=== PATIENT | male | born 1965 | race Caucasian/White ===

== ENCOUNTER 2022-10-29 17:43 | Inpatient (IN) ==
[2022-10-29] MEDS ORDERED: LORazepam 2 MG/1 ML VIAL IV STA (18:36)
[2022-10-29] MEDS ORDERED: ONDANSETRON INJ 2 MG/ML 2 ML VIAL IV STA ×2 (18:36→21:46)
[2022-10-29] MEDS ORDERED: SODIUM CHLORIDE 0.9% 1000ML 1,000 ML IV ONE (18:38)
--- NOTE | 2022-10-29 18:42 | Emergency Department Note ---
Impression & Plan Vertigo, Sinusitis Admit to the [facility] ED Provider Note NAME: JAIME PRATHER AGE: 57 SEX: M ARRIVES VIA: Walk-In INFORMANT: Patient and his ED PROVIDER(S): Jennifer Scott DO CHIEF COMPLAINT: Vertigo and vomiting PLAN: Disposition: Admit to the [facility] Condition: Fair MEDICAL DECISION MAKING: This is a 57-year-old male patient presents to the emergency department with vomiting and vertigo that will not stop. Patient had been diagnosed with a sinus infection 2 days ago at [facility] where he was started on Augmentin and Antivert. He seemed to be feeling better yesterday but then last night, he began to vomit and had significant increasing weakness, nausea, vomiting and dizziness to the point that he was unable to keep anything down throughout the day today and tonight. Here in the emergency department the patient appears to have severe symptoms of vertigo. He received IV crystalloid therapy, IV Ativan, oral Antivert, and IV Zofran. He went for CT scan of the brain and sinuses which revealed pansinusitis as interpreted by stat rad. Patient had a mildly elevated white blood cell count 11.6. There was no evidence of anemia. Renal function was normal. Electrolytes were normal. Upon presentation, the patient initially got some relief of the dizziness with IV fluids, IV Zofran, and IV Ativan. However, the severe vertiginous symptoms seem to return. It seems the patient is failing outpatient antibiotic treatment for sinusitis so he was given a dose of IV Unasyn here in the emergency department. Triage Nursing notes reviewed and agree with them. Additional history obtained from the patient's is at the bedside Prior medical records reviewed Vital Signs: reviewed and remarkable for no significant abnormalities Differential diagnosis: Dehydration, sinusitis, sinus abscess, meningitis, posterior circulation stroke, vertigo ER treatment provided: Cardiac monitoring Twelve-lead EKG IV normal saline bolus IV Ativan IV Zofran IV Unasyn Diagnostics interpreted by me: ECG: Normal sinus rhythm at a rate of [address] segment elevation or signs of ischemia. There is no ectopy. Cardiac Monitoring: Normal sinus rhythm at a rate of 72 Laboratory studies: See below Imaging studies: As per stat rad CT scan of the brain: See report CT scan of the sinuses: See report HPI: 57/M arrives for evaluation of vertigo and vomiting. Patient was diagnosed 2 days ago with vertigo at [facility] along with sinusitis. He was started on both Antivert and Augmentin. He seemed to be feeling better yesterday but then last evening became significantly weak and started vomiting again. Patient is unable to keep anything down today. PAST MEDICAL HISTORY:Hypertension, hypercholesterolemia PAST SURGICAL HISTORY:Previous surgery on the septum of his nose FAMILY HISTORY:See Below SOCIAL HISTORY:Patient lives with his . He works as a aragon. HOME MEDICATIONS:See list ALLERGIES:See list VITALS:See Below PHYSICAL EXAMINATION: HEENT: Head - normocephalic and atraumatic. Pupils are equal, round, and reactive to light. Extraocular eye muscles are intact and sclera are anicteric. Patient has significant horizontal nystagmus but no significant vertical or rotary nystagmus. Ears - bilaterally patent canals with noninjected tympanic membranes and no evidence of hemotympanum. Nose - moist nasal mucosa without discharge. Mouth - moist buccal mucosa. Oropharynx is nonerythematous and there is no tonsillar exudate or edema noted. Neck: Supple; no cervical lymphadenopathy or nuchal rigidity Heart: Regular rate and rhythm. There is a normal S1 and S2 with no murmurs, clicks, or gallops appreciated. Lungs: Clear to auscultation bilaterally with no wheezes, rales, or rhonchi. Abdomen: Soft, completely nontender, nondistended, with good bowel sounds. T here are no palpable pulsatile masses or hepatosplenomegaly. There is no guarding, rigidity, or rebound noted. Extremities: No evidence of cyanosis, clubbing, or edema. There are easily palpable peripheral pulses. Neuro:The patient is awake and alert, oriented to day, time, and place. Muscle strength is 5/5 in all 4 extremities. The patient has equal straw hat brusher strength and equal pedal push and pull. There are no cerebellar signs. The patient does not like to open his eyes because this exacerbates his dizziness and sensation that the room is spinning. ED COURSE: Times/Reassessments: 1814 patient was evaluated in room B10. A complete history and physical was performed. An IV lock was initiated and labs are drawn as above. An order was placed for continuous cardiac monitoring. The patient was in a normal sinus rhythm at a rate of 72. A twelve-lead EKG was obtained as described above. Patient was treated with IV Zofran and IV Ativan. He was bolused with IV normal saline solution. Patient went for CT scan of his brain and sinuses. Upon returning from radiology, his symptoms of nausea returned and he was given a second dose of Zofran. He was also given an oral dose of Antivert since that had previously helped 2 days ago. Patient feels as if he would be unable to get up off of the bed at this time due to such significant vertiginous symptoms. I reviewed the CT report with the patient and his . The patient was given a dose of IV Unasyn. 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 Beliefs That Will Affect Care: None Current Living Situation: Spouse Other Information That Helps Us Care for You: No Feels Safe at Home: Yes Safety Concerns: Feels Safe At This Time Assistive Devices: None Allergies Allergies Allergy/AdvReac Type Severity Reaction Status Date / Time apple Allergy Severe APPLE Verified 10/29/22 19:21 SKINS--MOUTH & THROAT SWELL grass pollen Allergy Severe HIVES, Verified 10/29/22 19:21 CONGESTION, SNEEZING, ITCHY EYES pollen extracts Allergy Severe HIVES, Verified 10/29/22 19:21 CONGESTION, SNEEZING, ITCHY EYES Home Meds Home Medications Medication Instructions Recorded Confirmed amlodipine 5 mg tablet 5 mg PO HS 10/29/22 10/29/22 amoxicillin 875 mg-potassium 1 tab PO BID 10/29/22 10/29/22 clavulanate 125 mg tablet atorvastatin 10 mg tablet 10 mg PO QAM 10/29/22 10/29/22 meclizine 12.5 mg tablet 12.5 mg PO TID PRN Dizziness 10/29/22 10/29/22 Results & Data (ED) Vital Signs Vital Signs - 24 hr 10/29/22 17:49 10/29/22 18:22 Temperature 36.6 C Temperature Source Temporal Artery Scan Pulse Rate 67 69 Respiratory Rate 20 Respiratory Effort / Characteristics Non-Labored Respiratory Depth Normal Blood Pressure 168/107 H Blood Pressure Mean 127 Pulse Oximetry 93 Oxygen Delivery Method Room Air Sepsis Recent Fever Within 48 Hours No Sepsis New/Unexplained Change in Mental Status N/A Sepsis Action Taken by Nursing No Action Required Laboratory Data 10/30/22 05:59 10/30/22 05:59 Lab Results 10/29/22 10/29/22 10/29/22 Range/Units 18:16 18:16 18:16 WBC 11.63 H (4.8-10.8) K/ul RBC 4.64 L (4.70-6.10) M/uL Hgb 15.0 (14.0-18.0) g/dl Hct 43.4 (42.0-52.0) % MCV 93.5 (80.0-100.0) fL MCH 32.3 (25.0-34.0) pg MCHC 34.6 (32.0-36.0) g/dL RDW Std Deviation 44.2 (36.4-46.3) fL RDW Coeff of [place] 13.1 (11.5-14.5) % Plt Count 276 (130-400) K/uL MPV 10.8 (9.4-12.4) fL Immature Gran % (Auto) 0.5 % Neut % (Auto) 86.8 % Lymph % (Auto) 7.7 % [place] % (Auto) 4.4 % Eos % (Auto) 0.3 % Baso % (Auto) 0.3 % Neut # (Auto) 10.08 H (1.40-6.50) K/uL Lymph # (Auto) 0.90 L (1.2-3.4) K/uL [place] # (Auto) 0.51 (0.11-0.59) K/uL Eos # (Auto) 0.04 (0-0.50) K/uL Baso # (Auto) 0.04 (0-0.2) K/uL Immature Gran # (Auto) 0.06 (0.01-0.20) K/uL Sodium 138 (136-145) mmol/L Potassium 3.9 (3.5-5.1) mmol/L Chloride 105 (98-107) mmol/L Carbon Dioxide 25 (21-32) mmol/L Anion Gap 8 (3-11) BUN 14 (6-23) mg/dl Creatinine 0.96 (0.6-1.4) mg/dl Est Cr Clr Drug Dosing Not Reportable Est GFR ( Amer) 101.3 ml/min Est GFR (Non-Af Amer) 87.4 ml/min BUN/Creatinine Ratio 14.6 (10-20) Glucose 112 H (70-99(Fasting)) mg/dl Lactate (0.4-2.0) mmol/L Calcium 9.4 (8.6-10.3) mg/dl Total Bilirubin 0.6 (0.2-1.0) mg/dl AST 20 (13-39) U/L ALT 29 (7-52) U/L Alkaline Phosphatase 57 (34-104) U/L Troponin I High Sens 3.6 (0-20) pg/ml Total Protein 7.3 (6.0-8.3) gm/dl Albumin 4.4 (3.4-5.0) gm/dl Globulin 2.9 (2.5-4.0) gm/dl Albumin/Globulin Ratio 1.5 (0.9-2) Procalcitonin < 0.05 (0-0.5) ng/ml SARS-CoV-2, RNA, NAAT (NEGATIVE) 10/29/22 10/30/22 Range/Units 19:07 00:00 WBC (4.8-10.8) K/ul RBC (4.70-6.10) M/uL Hgb (14.0-18.0) g/dl Hct (42.0-52.0) % MCV (80.0-100.0) fL MCH (25.0-34.0) pg MCHC (32.0-36.0) g/dL RDW Std Deviation (36.4-46.3) fL RDW Coeff of [place] (11.5-14.5) % Plt Count (130-400) K/uL MPV (9.4-12.4) fL Immature Gran % (Auto) % Neut % (Auto) % Lymph % (Auto) % [place] % (Auto) % Eos % (Auto) % Baso % (Auto) % Neut # (Auto) (1.40-6.50) K/uL Lymph # (Auto) (1.2-3.4) K/uL [place] # (Auto) (0.11-0.59) K/uL Eos # (Auto) (0-0.50) K/uL Baso # (Auto) (0-0.2) K/uL Immature Gran # (Auto) (0.01-0.20) K/uL Sodium (136-145) mmol/L Potassium (3.5-5.1) mmol/L Chloride (98-107) mmol/L Carbon Dioxide (21-32) mmol/L Anion Gap (3-11) BUN (6-23) mg/dl Creatinine (0.6-1.4) mg/dl Est Cr Clr Drug Dosing Est GFR ( Amer) ml/min Est GFR (Non-Af Amer) ml/min BUN/Creatinine Ratio (10-20) Glucose (70-99(Fasting)) mg/dl Lactate 1.2 (0.4-2.0) mmol/L Calcium (8.6-10.3) mg/dl Total Bilirubin (0.2-1.0) mg/dl AST (13-39) U/L ALT (7-52) U/L Alkaline Phosphatase (34-104) U/L Troponin I High Sens (0-20) pg/ml Total Protein (6.0-8.3) gm/dl Albumin (3.4-5.0) gm/dl Globulin (2.5-4.0) gm/dl Albumin/Globulin Ratio (0.9-2) Procalcitonin (0-0.5) ng/ml SARS-CoV-2, RNA, NAAT NEGATIVE (NEGATIVE) Administered Medications Acetaminophen (Acetaminophen 325 Mg Tab) 650 mg PO Q4H PRN PRN Reason: pain/fever Stop: 11/29/22 01:40 Last Admin: 10/30/22 21:45 Dose: 650 mg Documented By: Admin: 10/30/22 16:13 Dose: 650 mg Documented By: MAGUI Amlodipine Besylate (Amlodipine Besylate 5 Mg Tab) 5 mg PO HS SHANNA Stop: 11/29/22 20:59 Last Admin: 10/30/22 21:35 Dose: 5 mg Documented By: PEYTON Atorvastatin Calcium (Atorvastatin 10 Mg Tab) 10 mg PO QAM SHANNA Stop: 11/29/22 08:59 Last Admin: 10/30/22 08:11 Dose: 10 mg Documented By: MAGUI Methylprednisolone 40 mg/ (Syringe) 0.64 mls @ 1.5 mls/min IV Q8H SHANNA Stop: 11/29/22 05:59 Last Admin: 10/31/22 00:17 Dose: 1.5 mls/min Documented By: Admin: 10/30/22 17:03 Dose: 1.5 mls/min Documented By: Admin: 10/30/22 08:11 Dose: 1.5 mls/min Documented By: MAGUI Ceftriaxone Sodium 2,000 mg/ (Dextrose) 70 mls @ 100 mls/hr IV Q24H [facility]; Protocol Stop: 11/09/22 14:44 Last Infusion: 10/30/22 16:31 Dose: 0 mls/hr Documented By: Admin: 10/30/22 15:46 Dose: 100 mls/hr Documented By: MAGUI Lorazepam (Lorazepam 2 Mg/1 Ml Vial) 1 mg IV Q8H PRN PRN Reason: Anxiety/Agitation/seizure Stop: 11/30/22 03:04 Last Admin: 10/31/22 03:17 Dose: 1 mg Documented By: PEYTON Meclizine HCl (Meclizine 12.5 Mg Tab) 12.5 mg PO TID PRN PRN Reason: Dizziness Stop: 11/29/22 01:40 Last Admin: 10/30/22 21:36 Dose: 12.5 mg Documented By: Admin: 10/30/22 08:11 Dose: 12.5 mg Documented By: MAGUI Ondansetron HCl (Ondansetron Inj 2 Mg/Ml 2 Ml Vial) 4 mg IV Q6H PRN PRN Reason: Nausea Stop: 11/29/22 01:40 Last Admin: 10/30/22 02:05 Dose: 4 mg Documented By: TAVO Discontinued Medications Sodium Chloride (Nss 1000ml) 1,000 mls @ 999 mls/hr IV .Q1H1M ONE Stop: 10/29/22 19:38 Last Infusion: 10/29/22 20:11 Dose: 0 mls/hr Documented By: Admin: 10/29/22 18:53 Dose: 999 mls/hr Documented By: TOSHIA Ampicillin Sodium/Sulbactam Sodium 3,000 mg/ Sodium Chloride 108 mls @ 200 mls/hr IV NOW STA; Protocol Stop: 10/29/22 23:59 Last Infusion: 10/30/22 01:00 Dose: 0 mls/hr Documented By: Admin: 10/30/22 00:27 Dose: 200 mls/hr Documented By: RUTHANN Ampicillin Sodium/Sulbactam Sodium 3,000 mg/ Sodium Chloride 108 mls @ 200 mls/hr IV Q6H SHANNA; Protocol Stop: 11/09/22 05:59 Last Infusion: 10/30/22 14:18 Dose: 0 mls/hr Documented By: Admin: 10/30/22 13:43 Dose: 200 mls/hr Documented By: Infusion: 10/30/22 07:20 Dose: 0 mls/hr Documented By: Admin: 10/30/22 05:22 Dose: 200 mls/hr Documented By: TAVO Methylprednisolone 125 mg/ (Syringe) 2 mls @ 1.5 mls/min IV 0200 ONE Stop: 10/30/22 02:01 Last Admin: 10/30/22 02:05 Dose: 1.5 mls/min Documented By: TAVO Lactated Ringer's (Lr) 1,000 mls @ 125 mls/hr IV .Q8H SHANNA Stop: 10/30/22 10:29 Last Infusion: 10/30/22 10:51 Dose: 0 mls/hr Documented By: Admin: 10/30/22 02:34 Dose: 125 mls/hr Documented By: TAVO Lorazepam (Lorazepam 2 Mg/1 Ml Vial) 1 mg IV NOW STA Stop: 10/29/22 18:37 Last Admin: 10/29/22 18:52 Dose: 1 mg Documented By: TOSHIA Lorazepam (Lorazepam 2 Mg/1 Ml Vial) 1 mg IV NOW STA Stop: 10/31/22 03:27 Last Admin: 10/31/22 03:53 Dose: Not Given Documented By: PEYTON Meclizine HCl (Meclizine Hcl 25 Mg Tab) 25 mg PO NOW STA Stop: 10/29/22 21:47 Last Admin: 10/29/22 22:23 Dose: 25 mg Documented By: RUTHANN Ondansetron HCl (Ondansetron Inj 2 Mg/Ml 2 Ml Vial) 4 mg IV NOW STA Stop: 10/29/22 18:37 Last Admin: 10/29/22 18:52 Dose: 4 mg Documented By: TOSHIA Ondansetron HCl (Ondansetron Inj 2 Mg/Ml 2 Ml Vial) 4 mg IV NOW STA Stop: 10/29/22 21:47 Last Admin: 10/29/22 22:00 Dose: 4 mg Documented By: RUTHANN Discharge Plan Visit Data Chief Complaint: Vertigo Stated Complaint: VERTIGO ED Provider: Jennifer Scott Discharge Problem: Vertigo, Sinusitis Patient Disposition: Admitted As Inpatient Discharge Instructions Interventions: ED Discharge Assessment Last Done: 10/30/22 01:29
[2022-10-29 19:06] LABS: Basophils # (auto) 0.04 K/uL (0-0.2); Basophils % (auto) 0.3 %; Eosinophils # (auto) 0.04 K/uL (0-0.50); Eosinophils % (auto) 0.3 %; Hematocrit (blood only) 43.4 % (42.0-52.0); Immature Granulocytes # (auto) 0.06 K/uL (0.01-0.20); Immature Granulocytes % (auto) 0.5 %; Lymphocytes % (auto) 7.7 %; Mean Corpuscular Hemoglobin 32.3 pg (25.0-34.0); Mean Corpuscular Hgb Conc 34.6 g/dL (32.0-36.0); Mean Corpuscular Volume 93.5 fL (80.0-100.0); Mean Platelet Volume 10.8 fL (9.4-12.4); Monocytes # (auto) 0.51 K/uL (0.11-0.59); Monocytes % (auto) 4.4 %; Neutrophils # (auto) 10.08 K/uL (1.40-6.50); Neutrophils % (auto) 86.8 %; Platelet Count 276 K/uL (130-400); RDW Coefficient of Variation 13.1 % (11.5-14.5); RDW Standard Deviation 44.2 fL (36.4-46.3); Red Blood Count 4.64 M/uL (4.70-6.10); White Blood Count 11.63 K/ul (4.8-10.8)
[2022-10-29 19:07] LABS: Alanine Aminotransferase 29 U/L (7-52); Albumin Globulin Ratio 1.5 (0.9-2); Albumin Level 4.4 gm/dl (3.4-5.0); Alkaline Phosphatase 57 U/L (34-104); Anion Gap 8 (3-11); Aspartate Aminotransferase 20 U/L (13-39); BUN Creatinine Ratio 14.6 (10-20); Bilirubin,Total 0.6 mg/dl (0.2-1.0); Blood Urea Nitrogen 14 mg/dl (6-23); Calcium 9.4 mg/dl (8.6-10.3); Carbon Dioxide 25 mmol/L (21-32); Chloride 105 mmol/L (98-107); Est GFR (African American) 101.3 ml/min; Est GFR (Non-African American) 87.4 ml/min; Globulin 2.9 gm/dl (2.5-4.0); Glucose 112 mg/dl (70-99(Fasting)); Potassium 3.9 mmol/L (3.5-5.1); Sodium 138 mmol/L (136-145); Total Protein 7.3 gm/dl (6.0-8.3)
[2022-10-29 19:13] LABS: Troponin I High Sensitivity 3.6 pg/ml (0-20)
[2022-10-29] MEDS ORDERED: MECLIZINE HCL 25 MG TAB PO STA (21:46)
--- NOTE | 2022-10-29 22:11 | CT Scan Report ---
Exam(s): CT HEAD Without Contrast EXAM: CT Head Without Intravenous Contrast CLINICAL HISTORY: Reason for exam: SEVERE VERTIGO. TECHNIQUE: Axial computed tomography images of the head/brain without intravenous contrast. CTDI is 36.79 mGy and DLP is 624.41 mGy-cm. Automated exposure control was utilized for the study. A dose lowering technique was utilized adhering to the principles of ALARA. COMPARISON: None. FINDINGS: Brain: Mild generalized brain atrophy. No hemorrhage. No significant white matter disease. Ventricles: Unremarkable. No ventriculomegaly. Bones/joints: Unremarkable. No acute fracture. Soft tissues: Unremarkable. Sinuses: Mild mucosal thickening involving the bilateral ethmoidal sinuses, likely sequela of prior sinusitis. Remainder of the paranasal sinuses are clear. No air-fluid levels seen. Mastoid air cells: Unremarkable as visualized. No mastoid effusion. IMPRESSION: Involutional changes otherwise normal CT brain. Electronically signed by: Chen Beyer MD 10/29/22 22:10 PM
--- NOTE | 2022-10-29 22:15 | CT Scan Report ---
Exam(s): CT SINUSES EXAM: CT Maxillofacial Sinuses Without Intravenous Contrast CLINICAL HISTORY: Reason for exam: PERSISTENT SINUSITIS. TECHNIQUE: Computed tomography images of the maxillofacial sinuses without intravenous contrast. CTDI is 31.02 mGy and DLP is 608.89 mGy-cm. Automated exposure control was utilized for the study. A dose lowering technique was utilized adhering to the principles of ALARA. COMPARISON: None. FINDINGS: Bilateral paranasal sinuses: Scattered areas of mucosal thickening with mucous retention cyst within the bilateral maxillary sinuses, largest seen on the right measuring approximately 1.8 cm. Mild nonspecific mucosal thickening of bilateral ethmoids and frontal sinuses, a combination of findings consistent with sequela of prior sinusitis. No air-fluid levels seen. Minimal mucosal thickening through the sphenoid. Nasal cavity/septum: Mild deviation of the nasal septum with convexity to the left. Otherwise no acute findings. Mastoid air cells: Bilateral mastoids are clear. Bones/joints: The left ostiomeatal complex is patent. There is mild mucosal thickening of the right maxillary sinus near the right ostiomeatal complex with no distinct mass or cystic change at this level. No acute fracture. Soft tissues: Unremarkable. IMPRESSION: Mucosal thickening involving the bilateral maxillary, ethmoids, bilateral frontal sinuses and sphenoid sinus with mucous retention cyst within the bilateral maxillary sinus, findings most compatible with sequela of chronic sinusitis. Clinical correlation recommended. Electronically signed by: Chen Beyer MD 10/29/22 22:14 PM
[2022-10-29] MEDS ORDERED: AMPICILLIN/SULBACTAM SOD 3,000 MG in 0.9 % SODIUM CHLORIDE 100 ML IV STA (23:27)
--- NOTE | 2022-10-29 23:51 | History & Physical Report ---
Date of Service October 29, 2022 Assessment & Plan (1) Acute pansinusitis: (2) Hypertension: (3) Hyperlipidemia: (4) Failure of outpatient treatment: (5) Confusion and disorientation: (6) Intractable nausea and vomiting: Plan Acute pansinusitis/failure of outpatient treatment/confusion and disorientation/intractable vertigo- Started on Unasyn 3 g IV in the ED, and continue Unasyn 3 g IV every 6 hours Add methylprednisolone 125 mg IV now, and then 40 mg IV every 8 hours Patient showing signs of systemic involvement with intractable nausea vomiting, no oral intake for 2 days, dehydration, and disorientation and confusion He failed Augmentin twice daily for 3 days, which will be stopped Continue symptomatic treatment with meclizine 12.5 mg p.o. 3 times daily as needed dizziness Hypertension- Continue amlodipine with hold parameters Hyperlipidemia- Continue atorvastatin History of Present Illness Chief Complaint: The patient presents with his to the emergency department with complaint of vomiting, vertigo, disorientation and confusion despite being on Augmentin twice daily for 3 days. Primary Care Provider: KATIE FARRELL The patient is a 57-year-old male with a past medical history including hypertension and hyperlipidemia. He presents to the emergency department with 3 days of progressively worsening symptoms as noted above. He was started on Augmentin twice daily 3 days ago, and symptoms have continued to intensify since that time. He reports not having been able to hold anything down for 2 days. Allergies Allergy/AdvReac Type Severity Reaction Status Date / Time apple Allergy Severe APPLE Verified 10/29/22 19:21 SKINS--MOUTH & THROAT SWELL grass pollen Allergy Severe HIVES, Verified 10/29/22 19:21 CONGESTION, SNEEZING, ITCHY EYES pollen extracts Allergy Severe HIVES, Verified 10/29/22 19:21 CONGESTION, SNEEZING, ITCHY EYES Home Medications Medication Instructions Recorded Confirmed Type amlodipine 5 mg tablet 5 mg PO HS 10/29/22 10/29/22 History amoxicillin 875 mg-potassium 1 tab PO BID 10/29/22 10/29/22 History clavulanate 125 mg tablet atorvastatin 10 mg tablet 10 mg PO QAM 10/29/22 10/29/22 History meclizine 12.5 mg tablet 12.5 mg PO TID PRN Dizziness 10/29/22 10/29/22 History Past Med/Surg History Medical History (Updated 10/30/22 @ 01:37 by Valeriy Love MD) Hyperlipidemia Hypertension Social History Smoking Status: Never smoker Feels Safe at Home: Yes Review of Systems Review of Systems: The patient denies chest pain, palpitations, shortness of breath, dyspnea on exertion, lower extremity swelling, sore throat, fevers, chills, sweats, diarrhea , constipation, abdominal pain, pelvic pain, blood in urine or stool, dysuria, urinary frequency or urgency, memory loss, loss of consciousness, rash, abnormal bruising or bleeding, focal or generalized weakness, numbness or tingling in arms or legs, back or neck pain, or night sweats. The review of systems is otherwise negative other than for that already noted above, and at least 10 systems have been reviewed. Physical Exam Physical Exam: The patient is awake, alert and oriented 3, well developed and well nourished, normocephalic and atraumatic, lying in bed and in no acute distress. HEENT--PERRL, EOMI, mucous membranes and oropharynx dry. Neck--supple. No JVD. No bruits. Thyroid normal, trachea midline, no adenopathy. Heart--normal S1 and S2. No murmurs, rubs or gallops. Lungs--clear bilaterally, no respiratory distress, no accessory muscle use. Abdomen--normal bowel sounds and soft. Nontender. Nondistended, no hernias or masses, no organomegaly. Extremities--no cyanosis or clubbing. No edema. There are good distal pulses b/l. Dermatologic--normal skin turgor, normal color, no abnormal lymph nodes, no rash. Neurologic--cranial nerves II through XII grossly intact. Rheumatologic--normal range of motion. Psychiatric--normal affect. Results & Data Results & Data Vital Signs (Past 12 Hours) Vital Signs Temp Pulse Resp BP Pulse Ox O2 Del Method 10/29/22 22:20 73 10/29/22 22:30 71 20 93 10/29/22 22:00 78 24 164/96 H 94 Room Air 10/29/22 21:00 68 16 142/88 H 95 10/29/22 20:14 70 24 146/92 H 96 10/29/22 19:00 73 24 154/97 H 94 10/29/22 18:22 69 10/29/22 17:49 36.6 C 67 20 168/107 H 93 Room Air Laboratory Results Laboratory Results WBC 11.63 K/ul (4.8-10.8) H 10/29/22 18:16 RBC 4.64 M/uL (4.70-6.10) L 10/29/22 18:16 Hgb 15.0 g/dl (14.0-18.0) 10/29/22 18:16 Hct 43.4 % (42.0-52.0) 10/29/22 18:16 MCV 93.5 fL (80.0-100.0) 10/29/22 18:16 MCH 32.3 pg (25.0-34.0) 10/29/22 18:16 MCHC 34.6 g/dL (32.0-36.0) 10/29/22 18:16 RDW Std Deviation 44.2 fL (36.4-46.3) 10/29/22 18:16 RDW Coeff of [place] 13.1 % (11.5-14.5) 10/29/22 18:16 Plt Count 276 K/uL (130-400) 10/29/22 18:16 MPV 10.8 fL (9.4-12.4) 10/29/22 18:16 Immature Gran % (Auto) 0.5 % 10/29/22 18:16 Neut % (Auto) 86.8 % 10/29/22 18:16 Lymph % (Auto) 7.7 % 10/29/22 18:16 [place] % (Auto) 4.4 % 10/29/22 18:16 Eos % (Auto) 0.3 % 10/29/22 18:16 Baso % (Auto) 0.3 % 10/29/22 18:16 Neut # (Auto) 10.08 K/uL (1.40-6.50) H 10/29/22 18:16 Lymph # (Auto) 0.90 K/uL (1.2-3.4) L 10/29/22 18:16 [place] # (Auto) 0.51 K/uL (0.11-0.59) 10/29/22 18:16 Eos # (Auto) 0.04 K/uL (0-0.50) 10/29/22 18:16 Baso # (Auto) 0.04 K/uL (0-0.2) 10/29/22 18:16 Immature Gran # (Auto) 0.06 K/uL (0.01-0.20) 10/29/22 18:16 Sodium 138 mmol/L (136-145) 10/29/22 18:16 Potassium 3.9 mmol/L (3.5-5.1) 10/29/22 18:16 Chloride 105 mmol/L (98-107) 10/29/22 18:16 Carbon Dioxide 25 mmol/L (21-32) 10/29/22 18:16 Anion Gap 8 (3-11) 10/29/22 18:16 BUN 14 mg/dl (6-23) 10/29/22 18:16 Creatinine 0.96 mg/dl (0.6-1.4) 10/29/22 18:16 Est Cr Clr Drug Dosing Not Reportable 10/29/22 18:16 Est GFR ( Amer) 101.3 ml/min 10/29/22 18:16 Est GFR (Non-Af Amer) 87.4 ml/min 10/29/22 18:16 BUN/Creatinine Ratio 14.6 (10-20) 10/29/22 18:16 Glucose 112 mg/dl (70-99(Fasting)) H 10/29/22 18:16 Lactate 1.2 mmol/L (0.4-2.0) 10/29/22 19:07 Calcium 9.4 mg/dl (8.6-10.3) 10/29/22 18:16 Total Bilirubin 0.6 mg/dl (0.2-1.0) 10/29/22 18:16 AST 20 U/L (13-39) 10/29/22 18:16 ALT 29 U/L (7-52) 10/29/22 18:16 Alkaline Phosphatase 57 U/L (34-104) 10/29/22 18:16 Troponin I High Sens 3.6 pg/ml (0-20) 10/29/22 18:16 Total Protein 7.3 gm/dl (6.0-8.3) 10/29/22 18:16 Albumin 4.4 gm/dl (3.4-5.0) 10/29/22 18:16 Globulin 2.9 gm/dl (2.5-4.0) 10/29/22 18:16 Albumin/Globulin Ratio 1.5 (0.9-2) 10/29/22 18:16 Procalcitonin < 0.05 ng/ml (0-0.5) 10/29/22 18:16 SARS-CoV-2, RNA, NAAT NEGATIVE (NEGATIVE) 10/30/22 00:[address] 10/29/22 18:36 Exam(s): CT HEAD Without Contrast EXAM: CT Head Without Intravenous Contrast CLINICAL HISTORY: Reason for exam: SEVERE VERTIGO. TECHNIQUE: Axial computed tomography images of the head/brain without intravenous contrast. CTDI is 36.79 mGy and DLP is 624.41 mGy-cm. Automated exposure control was utilized for the study. A dose lowering technique was utilized adhering to the principles of ALARA. COMPARISON: None. FINDINGS: Brain: Mild generalized brain atrophy. No hemorrhage. No significant white matter disease. Ventricles: Unremarkable. No ventriculomegaly. Bones/joints: Unremarkable. No acute fracture. Soft tissues: Unremarkable. Sinuses: Mild mucosal thickening involving the bilateral ethmoidal sinuses, likely sequela of prior sinusitis. Remainder of the paranasal sinuses are clear. No air-fluid levels seen. Mastoid air cells: Unremarkable as visualized. No mastoid effusion. IMPRESSION: Involutional changes otherwise normal CT brain. Electronically signed by: Chen Beyer MD 10/29/22 22:[address] 10/29/22 18:36 Exam(s): CT SINUSES EXAM: CT Maxillofacial Sinuses Without Intravenous Contrast CLINICAL HISTORY: Reason for exam: PERSISTENT SINUSITIS. TECHNIQUE: Computed tomography images of the maxillofacial sinuses without intravenous contrast. CTDI is 31.02 mGy and DLP is 608.89 mGy-cm. Automated exposure control was utilized for the study. A dose lowering technique was utilized adhering to the principles of ALARA. COMPARISON: None. FINDINGS: Bilateral paranasal sinuses: Scattered areas of mucosal thickening with mucous retention cyst within the bilateral maxillary sinuses, largest seen on the right measuring approximately 1.8 cm. Mild nonspecific mucosal thickening of bilateral ethmoids and frontal sinuses, a combination of findings consistent with sequela of prior sinusitis. No air-fluid levels seen. Minimal mucosal thickening through the sphenoid. Nasal cavity/septum: Mild deviation of the nasal septum with convexity to the left. Otherwise no acute findings. Mastoid air cells: Bilateral mastoids are clear. Bones/joints: The left ostiomeatal complex is patent. There is mild mucosal thickening of the right maxillary sinus near the right ostiomeatal complex with no distinct mass or cystic change at this level. No acute fracture. Soft tissues: Unremarkable. IMPRESSION: Mucosal thickening involving the bilateral maxillary, ethmoids, bilateral frontal sinuses and sphenoid sinus with mucous retention cyst within the bilateral maxillary sinus, findings most compatible with sequela of chronic sinusitis. Clinical correlation recommended. Electronically signed by: Chen Beyer MD 10/29/22 22:14 PM Code Status & VTE Plan Code Status Full code VTE Prophylaxis Plan VTE Prophylaxis will be ordered: Yes PG Care Time/CCT Total # of Minutes Spent Total Time Spent with Patient: Total time spent is greater than 50% in coordination of care (as documented) at patient's floor/unit and/or counseling patient: Coding Level of Care Code 21858 INT INP/OBS CARE 2/55MIN Diagnoses Acute pansinusitis J01.40 Hypertension I10 Hyperlipidemia E78.5 Failure of outpatient treatment Z78.9 Confusion and disorientation R41.0 Intractable nausea and vomiting R11.2
[2022-10-30] MEDS ORDERED: methylPREDNISolone 125 MG/2 ML VIAL IV STA (01:41)
[2022-10-30] MEDS ORDERED: methylPREDNISolone 125 MG in SYRINGE 0 ML IV ONE (02:00)
[2022-10-30] MEDS: ONDANSETRON INJ 2 MG/ML 2 ML VIAL IV PRN (02:05)
[2022-10-30] MEDS ORDERED: LACTATED RINGER'S 1,000 ML IV SCH (02:30)
[2022-10-30] MEDS: AMPICILLIN/SULBACTAM SOD 3,000 MG in 0.9 % SODIUM CHLORIDE 100 ML IV SCH ×2 (05:22→13:43)
[2022-10-30 06:21] LABS: Hematocrit (blood only) 43.2 % (42.0-52.0); Hemoglobin 14.8 g/dl (14.0-18.0); Mean Corpuscular Hemoglobin 32.3 pg (25.0-34.0); Mean Corpuscular Hgb Conc 34.3 g/dL (32.0-36.0); Mean Corpuscular Volume 94.3 fL (80.0-100.0); Mean Platelet Volume 10.7 fL (9.4-12.4); Platelet Count 278 K/uL (130-400); RDW Coefficient of Variation 13.2 % (11.5-14.5); RDW Standard Deviation 45.1 fL (36.4-46.3); Red Blood Count 4.58 M/uL (4.70-6.10); White Blood Count 10.44 K/ul (4.8-10.8)
[2022-10-30 06:39] LABS: Basophils # (auto) 0.02 K/uL (0-0.2); Basophils % (auto) 0.2 %; Eosinophils # (auto) 0.01 K/uL (0-0.50); Eosinophils % (auto) 0.1 %; Immature Granulocytes # (auto) 0.04 K/uL (0.01-0.20); Immature Granulocytes % (auto) 0.4 %; Lymphocytes # (auto) 0.75 K/uL (1.2-3.4); Lymphocytes % (auto) 7.2 %; Monocytes # (auto) 0.06 K/uL (0.11-0.59); Monocytes % (auto) 0.6 %; Neutrophils # (auto) 9.56 K/uL (1.40-6.50); Neutrophils % (auto) 91.5 %
[2022-10-30 06:45] LABS: BUN Creatinine Ratio 13.9 (10-20); Calcium 9.1 mg/dl (8.6-10.3); Creatinine Clr Calc Pharmacy 91.2 ml/min; Est GFR (African American) 95.3 ml/min; Est GFR (Non-African American) 82.2 ml/min; Potassium 4.2 mmol/L (3.5-5.1)
[2022-10-30 07:04] LABS: Albumin Level 4.1 gm/dl (3.4-5.0); Phosphorus 1.2 mg/dl (2.5-4.9)
[2022-10-30] MEDS: MECLIZINE 12.5 MG TAB PO PRN ×2 (08:11→21:36)
[2022-10-30] MEDS: ATORVASTATIN 10 MG TAB PO SCH (08:11)
[2022-10-30] MEDS: methylPREDNISolone 40 MG in SYRINGE 0 ML IV SCH ×2 (08:11→17:03)
--- NOTE | 2022-10-30 10:37 | Electrocardiogram Report ---
Test Reason : Blood Pressure : / mmHG Vent. Rate : 070 BPM Atrial Rate : 070 BPM P-R Int : 164 ms QRS Dur : 080 ms QT Int : 390 ms P-R-T Axes : 000 -14 099 degrees QTc Int : 421 ms Normal sinus rhythm Minimal voltage criteria for LVH, may be normal variant ( Sokolow-Carlson ) Cannot rule out Inferior infarct , age undetermined Abnormal ECG No previous ECGs available Confirmed by Jack Pelaez ([id number]) on 10/30/2022 10:37:41 AM Referred By: REFERRED SELF Confirmed By:Jack Pelaez
--- NOTE | 2022-10-30 12:09 | Hospitalist Progress Note ---
Date of Service October 30, 2022 Assessment & Plan (1) Acute pansinusitis: Plan: IV antibiotic then PO Augmentin (2) Hypertension: Plan: Add Cozaar low dose if BP trends up. For now BP okay. (3) Hyperlipidemia: Plan: Good HDL (4) Failure of outpatient treatment: Plan: Therefore IV antibiotic (5) Confusion and disorientation: Plan: This symptom is improving. (6) Intractable nausea and vomiting: Plan: Improved. Plan Acute pansinusitis/failure of outpatient treatment/confusion and disorientation/intractable vertigo- Started on Unasyn 3 g IV in the ED, and continue Unasyn 3 g IV every 6 hours Add methylprednisolone 125 mg IV now, and then 40 mg IV every 8 hours Patient showing signs of systemic involvement with intractable nausea vomiting, no oral intake for 2 days, dehydration, and disorientation and confusion He failed Augmentin twice daily for 3 days, which will be stopped Continue symptomatic treatment with meclizine 12.5 mg p.o. 3 times daily as needed dizziness Hypertension- Continue amlodipine with hold parameters Hyperlipidemia- Continue atorvastatin Admission and Anticipated Discharge Date Admission Date: October 30, 2022 Subjective Patient went to [facility] last weak due to his symptoms and was hydrated and released. Patient blames the moldy hay for allergies and nasal congestion. I reviewed patient [facility] with patients approval and request to do so. Review of Systems Review of Systems: The patient denies chest pain, palpitations, shortness of breath, dyspnea on exertion, lower extremity swelling, sore throat, fevers, chills, sweats, diarrhea , constipation, abdominal pain, pelvic pain, blood in urine or stool, dysuria, urinary frequency or urgency, memory loss, loss of consciousness, rash, abnormal bruising or bleeding, focal or generalized weakness, numbness or tingling in arms or legs, back or neck pain, or night sweats. The review of systems is otherwise negative other than for that already noted above, and at least 10 systems have been reviewed. Neurologic: Patient has no focal deficit but is generally weak as a kitten. Physical Exam Physical Exam: The patient is awake, alert and oriented 3, well developed and well nourished, normocephalic and atraumatic, lying in bed and in no acute distress. HEENT--PERRL, EOMI, mucous membranes and oropharynx dry. Neck--supple. No JVD. No bruits. Thyroid normal, trachea midline, no adenopathy. Heart--normal S1 and S2. No murmurs, rubs or gallops. Lungs--clear bilaterally, no respiratory distress, no accessory muscle use. Abdomen--normal bowel sounds and soft. Nontender. Nondistended, no hernias or masses, no organomegaly. Extremities--no cyanosis or clubbing. No edema. There are good distal pulses b/l. Dermatologic--normal skin turgor, normal color, no abnormal lymph nodes, no rash. Neurologic--cranial nerves II through XII grossly intact. Rheumatologic--normal range of motion. Psychiatric--normal affect. Results & Data Results & Data Vital Signs (Past 12 Hours) Vital Signs Temp Pulse Pulse Resp BP BP Pulse Ox 10/30/22 07:40 36.7 C 69 16 135/84 95 10/30/22 01:50 10/30/22 01:47 36.7 C 73 18 161/99 H 94 10/30/22 01:00 68 16 145/95 H 93 10/30/22 00:00 65 14 149/97 H 96 O2 Del Method 10/30/22 07:40 Room Air 10/30/22 01:50 Room Air 10/30/22 01:47 Room Air 10/30/22 01:00 10/30/22 00:00 PG Care Time/CCT Total # of Minutes Spent Total Time Spent with Patient: Total time spent is greater than 50% in coordination of care (as documented) at patient's floor/unit and/or counseling patient: Coding Level of Care Code 11976 SUB INP/OBS CARE 3/50MIN Diagnoses Acute pansinusitis J01.40 Hypertension I10 Hyperlipidemia E78.5 Failure of outpatient treatment Z78.9 Confusion and disorientation R41.0 Intractable nausea and vomiting R11.2
--- NOTE | 2022-10-30 13:27 | Neurology Consultation ---
Date of Consultation October 30, 2022 Assessment & Plan (1) Vertigo: Reviewing his testing thus far, this is NOT pansinusitis. Very mild chronic sinus changes would not produce this presentation, he has no fluid levels and fully open mastoid air cells. He was previously febrile, has a headache and confusion, all concerning for meningitis, though likely partially treated at this point given the abx he received at [facility]. I do not suspect stroke, vertigo of this severity is typically vestibular. Ves tibulitis/labyrinthitis is possible as a secondary effect of the meningitis, because alone they would not produce confusion or generalized weakness. Recommend broadening abx coverage to an agent with CREDIT CARD CLERK penetration like ceftriaxone/vanc for now. He needs an LP and agree with proceeding to an MRI of the brain but would add contrasted studies as well. -- LP - Cell count, protein, glucose, gram stain, HSV, VZV, listeria -- Serum biofire, respiratory virus panel -- Lyme titer -- Defer need for ID consult to medicine -- Broaden abx coverage to ceftriaxone/vanc -- MRI brain with and without contrast -- We will follow Telehealth Consultation Telehealth Information Telehealth Information: I performed this visit using a real-time telehealth connection between my location and the patients location ([facility]). After connecting through interactive tele-video, patient was identified by name and date of and/or wristband check.Patient (or authorized healthcare associate financial representative) was informed that this was a telemedicine visit and it was being conducted confidentially over secure lines. My office door was closed and no one else was present in the room with me.Patient (or authorized healthcare associate financial representative) provided consent to proceed with the visit, expressed an understanding of privacy and security of the telemedicine visit, and gave permission to have a hospital associate financial representative in the room in order to assist with the visit and to conduct portions of the visit, as needed. I informed the patient (or authorized healthcare associate financial representative) that I reviewed their record and presented the opportunity for them to ask any questions regarding the visit today. The patient agreed to participate. History of Present Illness Reason for Consultation: Altered mental status, weakness, vertigo Requesting Physician: Dr. Abraham Attending Physician: Chan Abraham, DO History of Present Illness Cordell Westbrook is a 57 yo M presenting with generalized weakness in the setting of intractable vertigo and fevers. He was initially admitted to [facility] and diagnosed with sinusitis though imaging is not available. He was given abx and ultimately discharged. However, at home he was unable to keep down food or ambulate secondary to weakness and was brought to [facility] by his . The patient feels extremely weak, he has a frontal headache he initially attributed to the sinuses. 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 No recent chemical exposure. He is unable to move without severe waves of vertigo that cause him to vomit. He has never felt like this in the past. No hearing changes, no double vision, trouble swallowing or speaking. Allergies Allergy/AdvReac Type Severity Reaction Status Date / Time apple Allergy Severe APPLE Verified 10/29/22 19:21 SKINS--MOUTH & THROAT SWELL grass pollen Allergy Severe HIVES, Verified 10/29/22 19:21 CONGESTION, SNEEZING, ITCHY EYES pollen extracts Allergy Severe HIVES, Verified 10/29/22 19:21 CONGESTION, SNEEZING, ITCHY EYES Home Medications Medication Instructions Recorded Confirmed Type amlodipine 5 mg tablet 5 mg PO HS 10/29/22 10/29/22 History amoxicillin 875 mg-potassium 1 tab PO BID 10/29/22 10/29/22 History clavulanate 125 mg tablet atorvastatin 10 mg tablet 10 mg PO QAM 10/29/22 10/29/22 History meclizine 12.5 mg tablet 12.5 mg PO TID PRN Dizziness 10/29/22 10/29/22 History Patient History Medical History (Updated 10/30/22 @ 13:31 by Nikolas Hooks MD) Hyperlipidemia Hypertension Social History Smoking Status: Former smoker Smoking End Date: 12 years ago; Hx Alcohol Use: Yes Alcohol type: hard liquor Hx Substance Use: No Preferred Language: Mongolian Communication Ability: Effective Diagnostic Radiologist Required: No Beliefs That Will Affect Care: None Current Living Situation: Spouse Other Information That Helps Us Care for You: No Feels Safe at Home: Yes Safety Concerns: Feels Safe At This Time Assistive Devices: None Review of Systems +vertigo, headache, generalized weakness Physical Exam Neuro exam limited by patients ability to move due to vertigo. He is awake and alert, speech is slow but fluent, history is difficult to follow at times but no clear language abnormality. Oriented to person, place and time. Ocular versions full, face symmetric, tongue midline. Antigravity in the upper extremities with very little movement otherwise due to discomfort. No nucal rigidity but any neck motions trigger vertigo. Results & Data Vital Signs (Past 12 Hours) Vital Signs Temp Pulse Resp BP Pulse Ox O2 Del Method 10/30/22 12:41 36.5 C 81 12 154/93 H 92 Room Air 10/30/22 07:40 36.7 C 69 16 135/84 95 Room Air 10/30/22 01:50 Room Air 10/30/22 01:47 36.7 C 73 18 161/99 H 94 Room Air Laboratory Results Abnormal lab results 10/29/22 10/29/22 10/30/22 Range/Units 18:16 18:16 05:59 WBC 11.63 H (4.8-10.8) K/ul RBC 4.64 L 4.58 L (4.70-6.10) M/uL Neut # (Auto) 10.08 H 9.56 H (1.40-6.50) K/uL Lymph # (Auto) 0.90 L 0.75 L (1.2-3.4) K/uL [place] # (Auto) 0.06 L (0.11-0.59) K/uL Glucose 112 H (70-99(Fasting)) mg/dl Phosphorus (2.5-4.9) mg/dl 10/30/22 Range/Units 05:59 WBC (4.8-10.8) K/ul RBC (4.70-6.10) M/uL Neut # (Auto) (1.40-6.50) K/uL Lymph # (Auto) (1.2-3.4) K/uL [place] # (Auto) (0.11-0.59) K/uL Glucose 126 H (70-99(Fasting)) mg/dl Phosphorus 1.2 L* (2.5-4.9) mg/dl Diagnostic Findings CT sinuses - NEGATIVE for pansinusitis
[2022-10-30 15:21] LABS: Influenza A virus by PCR Negative (Neg); Influenza B virus by PCR Negative (Neg); RSV by PCR Negative (Neg); SARS CoV2 RNA(COVID-19) Ceph NEGATIVE (Negative)
[2022-10-30] MEDS: cefTRIAXone SODIUM 2,000 MG in DEXTROSE 5% 50 ML IV SCH (15:46)
[2022-10-30] MEDS: ACETAMINOPHEN 325 MG TAB PO PRN ×2 (16:13→21:45)
[2022-10-30] MEDS: amLODIPine BESYLATE 5 MG TAB PO SCH (21:35)
[2022-10-31] MEDS: methylPREDNISolone 40 MG in SYRINGE 0 ML IV SCH ×4 (00:17→23:58)
[2022-10-31] MEDS: LORazepam 2 MG/1 ML VIAL IV PRN (03:17)
[2022-10-31] MEDS ORDERED: LORazepam 2 MG/1 ML VIAL IV STA (03:26)
[2022-10-31 08:28] LABS: Hematocrit (blood only) 41.2 % (42.0-52.0); Hemoglobin 14.6 g/dl (14.0-18.0); Mean Corpuscular Hemoglobin 32.6 pg (25.0-34.0); Mean Corpuscular Hgb Conc 35.4 g/dL (32.0-36.0); Mean Platelet Volume 10.8 fL (9.4-12.4); Platelet Count 285 K/uL (130-400); RDW Coefficient of Variation 12.9 % (11.5-14.5); RDW Standard Deviation 43.8 fL (36.4-46.3); Red Blood Count 4.48 M/uL (4.70-6.10)
[2022-10-31] MEDS: ATORVASTATIN 10 MG TAB PO SCH (08:31)
[2022-10-31] MEDS: MECLIZINE 12.5 MG TAB PO PRN ×2 (08:31→14:35)
[2022-10-31 08:46] LABS: BUN Creatinine Ratio 21.4 (10-20); Est GFR (African American) 98.8 ml/min; Est GFR (Non-African American) 85.2 ml/min; Phosphorus 3.2 mg/dl (2.5-4.9); Potassium 4.1 mmol/L (3.5-5.1)
[2022-10-31 08:51] LABS: Basophils # (auto) 0.02 K/uL (0-0.2); Basophils % (auto) 0.1 %; Echinocytes 1+; Immature Granulocytes # (auto) 0.15 K/uL (0.01-0.20); Immature Granulocytes % (auto) 0.8 %; Lymphocytes # (auto) 0.91 K/uL (1.2-3.4); Lymphocytes % (auto) 5.1 %; Monocytes # (auto) 0.68 K/uL (0.11-0.59); Monocytes % (auto) 3.8 %; Neutrophils # (auto) 16.24 K/uL (1.40-6.50); Neutrophils % (auto) 90.2 %
[2022-10-31] MEDS ORDERED: GADOBUTROL 65ML VIAL IV ONE (13:19)
[2022-10-31] MEDS: cefTRIAXone SODIUM 2,000 MG in DEXTROSE 5% 50 ML IV SCH (14:35)
[2022-10-31] MEDS: ACETAMINOPHEN 325 MG TAB PO PRN ×2 (16:16→21:42)
--- NOTE | 2022-10-31 16:33 | Magnetic Resonance Report ---
Brain and bilateral artery canal MRI WITH AND WITHOUT CONTRAST HISTORY: Vertigo. meningitis evaluation TECHNIQUE: Multiplanar multisequence MRI of the brain and bilateral internal auditory canals were per formed both before and after the intravenous administration of contrast. COMPARISON STUDY: Head CT 10/29/2022. FINDINGS: No areas restricted diffusion to suggest acute infarction. The midline structures are intac t. There are a few retention cysts within the maxillary sinuses with mild mucosal thickening within t he ethmoid air cells. The orbits are unremarkable. The mastoid air cells are clear. The major vascula r flow-voids at the skull base are well-maintained. There is no mass, hematoma, midline shift. A few punctate foci of T2 hyperintensity seen within the white matter of the supratentorial brain. These ar e nonspecific but favor minimal microvascular ischemic change. The ventricles and sulci are within no rmal limits for age. Postcontrast sequences show no areas of abnormal enhancement. The 7th and 8th cranial nerves are normal and course and caliber. No evidence for inner ear dysplasia . The proximal trigeminal nerves are intact. No abnormal enhancement or masses within the internal au ditory canals. IMPRESSION: 1. No acute abnormality. 2. Normal bilateral internal auditory canals. ACT 112: Negative or not required by law. Electronically signed by: Skyler Ortega M.D. 10/31/2022 4:32 PM
[2022-10-31] MEDS: amLODIPine BESYLATE 5 MG TAB PO SCH ×2 (17:08→17:09)
[2022-10-31] MEDS: LOSARTAN POTASSIUM 25 MG TAB PO SCH (21:43)
--- NOTE | 2022-10-31 22:50 | Hospitalist Progress Note ---
Date of Service October 31, 2022 Assessment & Plan (1) Acute pansinusitis: Plan: IV antibiotic then PO Augmentin (2) Hypertension: Plan: Add Cozaar low dose if BP trends up. For now BP okay. (3) Hyperlipidemia: Plan: Good HDL (4) Failure of outpatient treatment: Plan: Therefore IV antibiotic (5) Confusion and disorientation: Plan: This symptom is improving. (6) Intractable nausea and vomiting: Plan: Improved. Plan Acute pansinusitis/failure of outpatient treatment/confusion and disorientation/intractable vertigo- Started on Unasyn 3 g IV in the ED, and continue Unasyn 3 g IV every 6 hours Add methylprednisolone 125 mg IV now, and then 40 mg IV every 8 hours Patient showing signs of systemic involvement with intractable nausea vomiting, no oral intake for 2 days, dehydration, and disorientation and confusion He failed Augmentin twice daily for 3 days, which will be stopped Continue symptomatic treatment with meclizine 12.5 mg p.o. 3 times daily as needed dizziness Hypertension- Continue amlodipine with hold parameters Add Cozaar 25 mg BID Hyperlipidemia- Continue atorvastatin Wean Solumedrol to 40mg BID tomorrow Await Lumbar puncture Continue IV Rocephin Admission and Anticipated Discharge Date Admission Date: October 31, 2022 Subjective Today patient had intraAuricular Canals and Brain imaged by MRI with Contrast and was Negative, Patient feels 25% better and generally stronger . WBC elevated but patient on steroids and remains afebrile. Blood pressure is trending up, and medication added, Cozaar. Patient for Lumbar puncture and is responding well to Rocephin. Review of Systems Review of Systems: No headache but remains dizzy. Eyes: CHARLI EOMI Ear, Nose, Mouth, Throat: Negative Respiratory: Normal Cardiovascular: Additional Comments: Normal S1 S2 Gastrointestinal: Normal Hematologic / Lymphatic: Nailbeds Normal Physical Exam Physical Exam: well developed well nourished Constitutional: WD/WN, vitals as above Eyes: PERRL, conjunctivae normal, anicteric sclerae ENMT: external ear and nose normal, oropharynx normal Cardiovascular: RRR, no murmur, no edema Neurologic: CN 2-12 normal Results & Data Results & Data Vital Signs (Past 12 Hours) Vital Signs Temp Pulse Resp BP Pulse Ox O2 Del Method 10/31/22 21:00 Room Air 10/31/22 21:10 36.7 C 76 17 165/101 H 94 Room Air 10/31/22 16:10 36.4 C L 85 14 180/100 H 94 Room Air Laboratory Results see above Diagnostic Findings MRI Brain and intrnal auditory canals normal. PG Care Time/CCT Total # of Minutes Spent Total Time Spent with Patient: Total time spent is greater than 50% in coordination of care (as documented) at patient's floor/unit and/or counseling patient: Coding Level of Care Code 65583 SUB INP/OBS CARE 3/50MIN Diagnoses Acute pansinusitis J01.40 Hypertension I10 Hyperlipidemia E78.5 Failure of outpatient treatment Z78.9 Confusion and disorientation R41.0 Intractable nausea and vomiting R11.2 Time Spent (min) 60 Comment Neuro hospice care consultant
[2022-11-01] MEDS: MECLIZINE 12.5 MG TAB PO PRN ×3 (00:23→20:42)
[2022-11-01] MEDS: LORazepam 2 MG/1 ML VIAL IV PRN ×2 (00:32→23:32)
[2022-11-01] MEDS: ONDANSETRON INJ 2 MG/ML 2 ML VIAL IV PRN ×4 (00:32→23:32)
[2022-11-01 06:34] LABS: Hematocrit (blood only) 41.7 % (42.0-52.0); Hemoglobin 14.6 g/dl (14.0-18.0); Mean Corpuscular Hemoglobin 32.3 pg (25.0-34.0); Mean Corpuscular Volume 92.3 fL (80.0-100.0); Mean Platelet Volume 10.7 fL (9.4-12.4); Platelet Count 290 K/uL (130-400); RDW Coefficient of Variation 13.2 % (11.5-14.5); RDW Standard Deviation 45.1 fL (36.4-46.3); Red Blood Count 4.52 M/uL (4.70-6.10); White Blood Count 17.48 K/ul (4.8-10.8)
[2022-11-01 06:48] LABS: Partial Thromboplastin Ratio 0.9; Partial Thromboplastin Time 25.7 Seconds (21.0-31.0); Prothrombin Time 11.2 Seconds (9.0-12.0)
[2022-11-01 06:59] LABS: Basophils # (auto) 0.02 K/uL (0-0.2); Basophils % (auto) 0.1 %; Immature Granulocytes # (auto) 0.18 K/uL (0.01-0.20); Lymphocytes # (auto) 0.93 K/uL (1.2-3.4); Lymphocytes % (auto) 5.3 %; Monocytes # (auto) 0.47 K/uL (0.11-0.59); Monocytes % (auto) 2.7 %; Neutrophils # (auto) 15.88 K/uL (1.40-6.50); Neutrophils % (auto) 90.9 %
[2022-11-01 07:13] LABS: Albumin Level 3.9 gm/dl (3.4-5.0); Bilirubin,Total 0.4 mg/dl (0.2-1.0); Calcium 8.8 mg/dl (8.6-10.3); Potassium 4.3 mmol/L (3.5-5.1)
[2022-11-01 07:19] LABS: Albumin Globulin Ratio 1.3 (0.9-2); BUN Creatinine Ratio 26.7 (10-20); Creatinine Clr Calc Pharmacy 102.3 ml/min; Est GFR (African American) 109.5 ml/min; Est GFR (Non-African American) 94.5 ml/min; Globulin 2.9 gm/dl (2.5-4.0); Phosphorus 3.2 mg/dl (2.5-4.9); Total Protein 6.8 gm/dl (6.0-8.3)
[2022-11-01] MEDS: LOSARTAN POTASSIUM 25 MG TAB PO SCH ×2 (09:15→20:42)
[2022-11-01] MEDS: amLODIPine BESYLATE 5 MG TAB PO SCH (09:15)
[2022-11-01] MEDS: methylPREDNISolone 40 MG in SYRINGE 0 ML IV SCH ×3 (09:15→23:33)
[2022-11-01] MEDS: ATORVASTATIN 10 MG TAB PO SCH (09:15)
[2022-11-01] MEDS: cefTRIAXone SODIUM 2,000 MG in DEXTROSE 5% 50 ML IV SCH (15:41)
[2022-11-01 16:14] LABS: Appearance CSF Clear; CSF Count Tube # 3; CSF Xanthrochromic No xanthochromia; Color CSF Colorless; Total Protein CSF 74.2 mg/dl (15-45)
[2022-11-01 16:15] LABS: Red Blood Cell CSF Auto 0 /uL (0-); White Blood Cell CSF Auto 2 /uL (0-5)
[2022-11-01] MEDS: ACETAMINOPHEN 325 MG TAB PO PRN ×2 (16:33→20:41)
--- NOTE | 2022-11-01 17:09 | Neurology Progress Note ---
Date of Service November 01, 2022 Assessment & Plan (1) Vertigo: Testing has been overall benign thus far ruling out serious causes of stroke, tumor, MS, meningitis. Elevated protein in the CSF is not normal, could potentially be secondary to systemic infection. Vertigo possibly due to a virus that has since resolved causing vestibulitis/labyrinthitis. Neither would be seen routinely on MRI/IAC. Overall would focus on PT and vestibular rehab at this point. Would await lyme before discontinuing abx. Please contact us with any further questions. Would have the patient follow-up with ENT as an outpatient. Subjective Telehealth Information I performed this visit using a real-time telehealth connection between my location and the patients location ([facility]). After connecting through interactive tele-video, patient was identified by name and date of and/or wristband check.Patient (or authorized healthcare leasing representative) was informed that this was a telemedicine visit and it was being conducted confidentially over secure lines. My office door was closed and no one else was present in the room with me.Patient (or authorized healthcare leasing representative) provided consent to proceed with the visit, expressed an understanding of privacy and security of the telemedicine visit, and gave permission to have a hospital leasing representative in the room in order to assist with the visit and to conduct portions of the visit, as needed. I informed the patient (or authorized healthcare leasing representative) that I reviewed their record and presented the opportunity for them to ask any questions regarding the visit today. The patient agreed to participate. Patient continues to have vertigo and has been laying still to prevent the sensation. He feels overall better however, feels that the vertigo medication is worsening. He has not really tried to ambulate because he is worried he will collapse. No headache post-LP. Review of Systems +vertigo Physical Exam Awake and alert, speech fluent and remains clear. Versions full, no facial asymmetry. Results & Data Vital Signs (Past 12 Hours) Vital Signs Temp Pulse Resp BP Pulse Ox O2 Del Method 11/01/22 16:20 36.5 C 77 18 149/84 H 93 Room Air 11/01/22 15:58 36.4 C L 72 18 157/93 H 93 Room Air 11/01/22 07:28 36.4 C L 68 16 121/74 95 Room Air Laboratory Results CSF - 2 WBCs, 0 RBCs, Prot 74 Diagnostic Findings MRI Brain with IAC - Unremarkable
[2022-11-01 17:21] LABS: Cryptococcus neoformans/ga PCR Not Detected (NotDetected); Cytomegalovirus PCR Not Detected (NotDetected); Enterovirus PCR Not Detected (NotDetected); Escherichia coli K1 PCR Not Detected (NotDetected); Haemophilius influenzae PCR Not Detected (NotDetected); Herpes Simplex Virus 1 PCR Not Detected (NotDetected); Herpes Simplex Virus 2 PCR Not Detected (NotDetected); Human Herpes Virus 6 PCR Not Detected (NotDetected); Human Parechovirus PCR Not Detected (NotDetected); Listeria monocytogenes PCR Not Detected (NotDetected); Neisseria meningitidis PCR Not Detected (NotDetected); Streptococcus agalactiae PCR Not Detected (NotDetected); Streptococcus pneumoniae PCR Not Detected (NotDetected); Varicella Zoster Virus PCR Not Detected (NotDetected)
--- NOTE | 2022-11-01 21:29 | Fluoroscopy Report ---
Lumbar puncture under fluoroscopy INDICATION: Dizziness/confusion; evaluate for meningitis PROCEDURE: Procedure and risks were explained. Informed consent was obtained. A final timeout was com pleted. The patient was placed prone on the fluoroscopic exam table. The lower lumbar region was prep ped and draped in sterile fashion. 1% lidocaine was utilized for skin anesthesia. Utilizing fluoroscopic guidance, a 22-gauge spinal needle was advanced into the intrathecal space at the L4-L5 disc space level. Spot image was obtained. Approximately 8 mL of clear CSF fluid was remove d and sent to lab for analysis. The needle was removed and Band-Aid applied. The patient tolerated th e procedure well. Total fluoroscopy time is 1 minute. DAP is 12.9 mcGy/m2. IMPRESSION: Lumbar puncture as above. Performed, dictated, and signed by Layo Ramirez PA-C; to be co-signed by Dr. Rosales eBllo. Electronically signed by: Rosales Bello M.D. 11/01/2022 9:27 PM
--- NOTE | 2022-11-02 06:46 | Hospitalist Progress Note ---
Date of Service November 01, 2022 Assessment & Plan (1) Acute pansinusitis: Plan: IV antibiotic then PO Augmentin (2) Hypertension: Plan: Add Cozaar low dose if BP trends up. For now BP okay. (3) Hyperlipidemia: Plan: Good HDL (4) Failure of outpatient treatment: Plan: Therefore IV antibiotic (5) Confusion and disorientation: Plan: This symptom is improving. (6) Intractable nausea and vomiting: Plan: Improved. Plan Acute pansinusitis/failure of outpatient treatment/confusion and disorientation/intractable vertigo- Started on Unasyn 3 g IV in the ED, and continue Unasyn 3 g IV every 6 hours Add methylprednisolone 125 mg IV now, and then 40 mg IV every 8 hours Patient showing signs of systemic involvement with intractable nausea vomiting, no oral intake for 2 days, dehydration, and disorientation and confusion He failed Augmentin twice daily for 3 days, which will be stopped Continue symptomatic treatment with meclizine 12.5 mg p.o. 3 times daily as needed dizziness Hypertension- Continue amlodipine with hold parameters Add Cozaar 25 mg BID Hyperlipidemia- Continue atorvastatin Wean Solumedrol to 40mg BID tomorrow Await Lumbar puncture Continue IV Rocephin Admission and Anticipated Discharge Date Admission Date: October 31, 2022 Subjective Today patient preparing for lumbar puncture He is n.p.o. His is in attendance Patient appears a little bit apprehensive But is ready Patient continues to have vertigo and has been laying still to prevent the sensation. He feels overall better however, feels that the vertigo medication is worsening. He has not really tried to ambulate because he is worried he will collapse. No headache post-LP. Results & Data Results & Data Vital Signs (Past 12 Hours) Vital Signs Temp Pulse Resp BP Pulse Ox O2 Del Method 11/01/22 20:23 36.7 C 81 18 149/90 H 93 Room Air PG Care Time/CCT Total # of Minutes Spent Total Time Spent with Patient: Total time spent is greater than 50% in coordination of care (as documented) at patient's floor/unit and/or counseling patient: Coding Level of Care Code 53271 SUB INP/OBS CARE 2/35MIN Diagnoses Acute pansinusitis J01.40 Hypertension I10 Hyperlipidemia E78.5 Failure of outpatient treatment Z78.9 Confusion and disorientation R41.0 Intractable nausea and vomiting R11.2 Time Spent (min) 40
[2022-11-02 07:57] LABS: 18KDIGG Band NON-REACTIVE; 23KDIGG Band NON-REACTIVE; 23KDIGM Band NON-REACTIVE; 28KDIGG Band NON-REACTIVE; 30KDIGG Band NON-REACTIVE; 39KDIGG Band NON-REACTIVE; 39KDIGM Band NON-REACTIVE; 41KDIGG Band NON-REACTIVE; 41KDIGM Band NON-REACTIVE; 45KDIGG Band NON-REACTIVE; 58KDIGG Band NON-REACTIVE; 66KDIGG Band NON-REACTIVE; 93KDIGG Band NON-REACTIVE; Lyme Antibodies, WB IgG NEGATIVE (NEGATIVE); Lyme Antibodies, WB IgM NEGATIVE (NEGATIVE)
[2022-11-02] MEDS: MECLIZINE 12.5 MG TAB PO PRN ×2 (08:22→21:42)
[2022-11-02] MEDS: amLODIPine BESYLATE 5 MG TAB PO SCH (08:22)
[2022-11-02] MEDS: methylPREDNISolone 40 MG in SYRINGE 0 ML IV SCH (08:22)
[2022-11-02] MEDS: LOSARTAN POTASSIUM 25 MG TAB PO SCH ×2 (08:22→21:42)
[2022-11-02] MEDS: ATORVASTATIN 10 MG TAB PO SCH (08:22)
[2022-11-02 10:41] LABS: Babesia microti DNA Not Detected (Not Detected)
[2022-11-02] MEDS: cefTRIAXone SODIUM 2,000 MG in DEXTROSE 5% 50 ML IV SCH (13:41)
[2022-11-02] MEDS: ACETAMINOPHEN 325 MG TAB PO PRN ×2 (13:41→17:42)
[2022-11-02 15:48] LABS: Basophils # (auto) 0.07 K/uL (0-0.2); Basophils % (auto) 0.4 %; Hematocrit (blood only) 47.4 % (42.0-52.0); Hemoglobin 16.4 g/dl (14.0-18.0); Immature Granulocytes # (auto) 0.26 K/uL (0.01-0.20); Immature Granulocytes % (auto) 1.5 %; Lymphocytes # (auto) 1.62 K/uL (1.2-3.4); Lymphocytes % (auto) 9.4 %; Mean Corpuscular Hemoglobin 32.1 pg (25.0-34.0); Mean Corpuscular Hgb Conc 34.6 g/dL (32.0-36.0); Mean Corpuscular Volume 92.8 fL (80.0-100.0); Mean Platelet Volume 10.8 fL (9.4-12.4); Monocytes # (auto) 1.19 K/uL (0.11-0.59); Monocytes % (auto) 6.9 %; Neutrophils # (auto) 14.02 K/uL (1.40-6.50); Neutrophils % (auto) 81.8 %; Platelet Count 325 K/uL (130-400); RDW Coefficient of Variation 12.9 % (11.5-14.5); RDW Standard Deviation 44.4 fL (36.4-46.3); Red Blood Count 5.11 M/uL (4.70-6.10); White Blood Count 17.16 K/ul (4.8-10.8)
[2022-11-02 16:00] LABS: Alanine Aminotransferase 97 U/L (7-52); Albumin Globulin Ratio 1.2 (0.9-2); Albumin Level 4.2 gm/dl (3.4-5.0); Alkaline Phosphatase 62 U/L (34-104); Anion Gap 10 (3-11); Aspartate Aminotransferase 54 U/L (13-39); BUN Creatinine Ratio 24.4 (10-20); Bilirubin,Total 0.3 mg/dl (0.2-1.0); Blood Urea Nitrogen 31 mg/dl (6-23); C Reactive Protein < 0.50 mg/dl (0-0.5); Calcium 9.4 mg/dl (8.6-10.3); Carbon Dioxide 23 mmol/L (21-32); Chloride 105 mmol/L (98-107); Creatine Kinase 128 U/L (30-223); Creatinine Clr Calc Pharmacy 72.5 ml/min; Est GFR (African American) 72.2 ml/min; Est GFR (Non-African American) 62.3 ml/min; Globulin 3.4 gm/dl (2.5-4.0); Glucose 127 mg/dl (70-99(Fasting)); Magnesium 2.4 mg/dl (1.7-2.4); Phosphorus 2.1 mg/dl (2.5-4.9); Potassium 4.4 mmol/L (3.5-5.1); Sodium 138 mmol/L (136-145); Total Protein 7.6 gm/dl (6.0-8.3)
[2022-11-02 18:04] LABS: Appearance Urine Clear (Clear); Bilirubin Urine Negative (Negative); Blood Urine Negative (Negative); Color Urine Yellow; Glucose Urine UA Negative (Negative); Ketones Urine Negative (Negative); Leukocyte Esterase Urine Negative (Negative); Nitrite Urine Negative (Negative); Protein Urine Negative (Negative); Specific Gravity Urine 1.033 (1.000-1.030); Urobilinogen Urine Negative (Negative); pH Urine 5.5 (4.5-7.5)
[2022-11-02 18:27] LABS: Amphetamines+Metham, Urine Neg (Neg); Barbiturates, Urine Neg (Neg); Benzodiazepine, Urine Neg (Neg); Cocaine, Urine Neg (Neg); MDMA (Ecstacy), Urine Neg (Neg); Methadone, Urine Neg (Neg); Opiate, Urine Neg (Neg); Phencyclidine, Urine Neg (Neg)
[2022-11-02 18:54] LABS: Adenovirus PCR Not Detected (NotDetected); Bordetella parapertussis PCR Not Detected (NotDetected); Bordetella pertussis PCR Not Detected (NotDetected); Chlamydia pneumoniae PCR Not Detected (NotDetected); Coronavirus 229E PCR Not Detected (NotDetected); Coronavirus CoV-2 (COVID19)PCR Not Detected (NotDetected); Coronavirus HKU1 PCR Not Detected (NotDetected); Coronavirus NL63 PCR Not Detected (NotDetected); Coronavirus OC43PCR Not Detected (NotDetected); Human Metapneumovirus PCR Not Detected (NotDetected); Influenza A PCR Not Detected (NotDetected); Influenza B PCR Not Detected (NotDetected); Mycoplasma pneumoniae PCR Not Detected (NotDetected); Parainfluenza Virus 1 PCR Not Detected (NotDetected); Parainfluenza Virus 2 PCR Not Detected (NotDetected); Parainfluenza Virus 3 PCR Not Detected (NotDetected); Parainfluenza Virus 4 PCR Not Detected (NotDetected); Respiratory Syncytial VirusPCR Not Detected (NotDetected); Rhinovirus/Enterovirus PCR Not Detected (NotDetected)
[2022-11-02] MEDS: ONDANSETRON INJ 2 MG/ML 2 ML VIAL IV PRN (20:48)
[2022-11-02] MEDS ORDERED: SODIUM PHOSPHATE 3 MMOL/1 ML INFUSION IV STA (22:44)
--- NOTE | 2022-11-02 22:44 | Hospitalist Progress Note ---
Date of Service November 02, 2022 Assessment & Plan (1) Vertigo: Plan: Patient admitted with vertigo and weakness. Unsure as to the cause. Patient has had etensive workup, including LP, MRI of head with and without contrast. Unsure of cause of his symptoms. A variant of Guillian [place] syndrome is a possibility. Ordered GQ1b. ordered inflammatory markers. will check ach antibodies. doubt mysthenia gravis or eaton lambert syndrome. appreciate inout from Neuro. (2) Weakness: Plan: unsure of his cause, could be GBS. (3) Acute pansinusitis: Plan: Acute pansinusitis/failure of outpatient treatment/confusion and disorientation/intractable vertigo- Started on Unasyn 3 g IV in the ED, and continue Unasyn 3 g IV every 6 hours Add methylprednisolone 125 mg IV now, and then 40 mg IV every 8 hours Patient showing signs of systemic involvement with intractable nausea vomiting, no oral intake for 2 days, dehydration, and disorientation and confusion He failed Augmentin twice daily for 3 days, which will be stopped Continue symptomatic treatment with meclizine 12.5 mg p.o. 3 times daily as needed dizziness Hypertension- Continue amlodipine with hold parameters Add Cozaar 25 mg BID Hyperlipidemia- Continue atorvastatin Wean Solumedrol to 40mg BID tomorrow Await Lumbar puncture Continue IV Rocephin (4) Hypertension: Plan: Add Cozaar low dose if BP trends up. For now BP okay. (5) Hyperlipidemia: Plan: Good HDL (6) Failure of outpatient treatment: Plan: Therefore IV antibiotic (7) Confusion and disorientation: Plan: This symptom is improving. (8) Intractable nausea and vomiting: Plan: Improved. Admission and Anticipated Discharge Date Admission Date: October 31, 2022 Subjective Patient reports feeling very weak today. He is unable to fully lift left arm out of bed. He states his bilateral lower extremoty is very weak. Patient reports this is accompanied by vertigo. He feels that even by moving his extremities, his dizziness worsens. Patient reports he felt stronger yesterday evening. Review of Systems Review of Systems: All systems reviewed & are unremarkable except as noted in HPI & below Physical Exam Physical Exam: The patient is awake, alert and oriented 3, well developed and well nourished, normocephalic and atraumatic, lying in bed and in no acute distress. HEENT--PERRL, EOMI, mucous membranes and oropharynx dry. Neck--supple. No JVD. No bruits. Thyroid normal, trachea midline, no adenopathy. Heart--normal S1 and S2. No murmurs, rubs or gallops. Lungs--clear bilaterally, no respiratory distress, no accessory muscle use. Abdomen--normal bowel sounds and soft. Nontender. Nondistended, no hernias or masses, no organomegaly. Extremities--no cyanosis or clubbing. No edema. There are good distal pulses b/l. decreased strenth : 3/5 in left upper extremity 4/5 in all others. Dermatologic--normal skin turgor, normal color, no abnormal lymph nodes, no rash. Neurologic--cranial nerves II through XII grossly intact. Psychiatric--normal affect. Results & Data Results & Data Vital Signs (Past 12 Hours) Vital Signs Temp Pulse Resp BP Pulse Ox O2 Del Method 11/02/22 22:18 36.8 C 74 17 147/97 H 96 Room Air 11/02/22 15:31 36.8 C 78 16 148/90 H 92 Room Air PG Care Time/CCT Total # of Minutes Spent Total Time Spent with Patient: Total time spent is greater than 50% in coordination of care (as documented) at patient's floor/unit and/or counseling patient: Coding Level of Care Code 01332 SUB INP/OBS CARE 3/50MIN Diagnoses Vertigo R42 Weakness R53.1 Acute pansinusitis J01.40 Hypertension I10 Hyperlipidemia E78.5 Failure of outpatient treatment Z78.9 Confusion and disorientation R41.0 Intractable nausea and vomiting R11.2 Time Spent (min) 50
[2022-11-02] MEDS ORDERED: SODIUM PHOSPHATE 24 MMOL in SODIUM CHLORIDE 0.9% 500 ML IV ONE (23:00)
[2022-11-03] MEDS: ACETAMINOPHEN 325 MG TAB PO PRN ×2 (07:39→18:51)
[2022-11-03] MEDS: LOSARTAN POTASSIUM 25 MG TAB PO SCH ×2 (08:50→20:31)
[2022-11-03] MEDS: amLODIPine BESYLATE 5 MG TAB PO SCH (08:51)
[2022-11-03] MEDS: ATORVASTATIN 10 MG TAB PO SCH (08:51)
[2022-11-03] MEDS: methylPREDNISolone 40 MG in SYRINGE 0 ML IV SCH (08:52)
[2022-11-03 09:03] LABS: Hematocrit (blood only) 46.2 % (42.0-52.0); Hemoglobin 16.1 g/dl (14.0-18.0); Mean Corpuscular Hemoglobin 32.6 pg (25.0-34.0); Mean Corpuscular Hgb Conc 34.8 g/dL (32.0-36.0); Mean Corpuscular Volume 93.5 fL (80.0-100.0); Mean Platelet Volume 10.7 fL (9.4-12.4); Platelet Count 285 K/uL (130-400); RDW Coefficient of Variation 13.2 % (11.5-14.5); RDW Standard Deviation 45.2 fL (36.4-46.3); Red Blood Count 4.94 M/uL (4.70-6.10); White Blood Count 13.57 K/ul (4.8-10.8)
[2022-11-03 09:30] LABS: Anion Gap 6 (3-11); Blood Urea Nitrogen 26 mg/dl (6-23); C Reactive Protein < 0.50 mg/dl (0-0.5); Calcium 8.9 mg/dl (8.6-10.3); Carbon Dioxide 26 mmol/L (21-32); Chloride 106 mmol/L (98-107); Est GFR (African American) 105.2 ml/min; Est GFR (Non-African American) 90.8 ml/min; Glucose 95 mg/dl (70-99(Fasting)); Magnesium 2.2 mg/dl (1.7-2.4); Phosphorus 3.1 mg/dl (2.5-4.9); Potassium 3.6 mmol/L (3.5-5.1); Sodium 138 mmol/L (136-145)
[2022-11-03] MEDS: MECLIZINE 12.5 MG TAB PO PRN ×2 (09:57→18:19)
[2022-11-03] MEDS: cefTRIAXone SODIUM 2,000 MG in DEXTROSE 5% 50 ML IV SCH (14:26)
--- NOTE | 2022-11-03 23:01 | Hospitalist Progress Note ---
Date of Service November 03, 2022 Assessment & Plan (1) Vertigo: Plan: Patient admitted with vertigo and weakness. Unsure as to the cause. Patient has had etensive workup, including LP, MRI of head with and without contrast. Unsure of cause of his symptoms. A variant of Guillian [place] syndrome is a possibility. Ordered GQ1b. ordered inflammatory markers. will check ach antibodies. doubt mysthenia gravis or eaton lambert syndrom Patient continues to have vertigo. appreciate input from Neuro. Patient appears slightly improved today, but is waxing and waning. will continue to monitor. Patient has had the phos replaced. (2) Weakness: Plan: unsure of his cause, could be GBS. (3) Acute pansinusitis: Plan: Acute pansinusitis/failure of outpatient treatment/confusion and disorientation/intractable vertigo- Started on Unasyn 3 g IV in the ED, and continue Unasyn 3 g IV every 6 hours Add methylprednisolone 125 mg IV now, and then 40 mg IV every 8 hours Patient showing signs of systemic involvement with intractable nausea vomiting, no oral intake for 2 days, dehydration, and disorientation and confusion He failed Augmentin twice daily for 3 days, which will be stopped Continue symptomatic treatment with meclizine 12.5 mg p.o. 3 times daily as needed dizziness Hypertension- Continue amlodipine with hold parameters Add Cozaar 25 mg BID Hyperlipidemia- Continue atorvastatin Wean Solumedrol to 40mg BID tomorrow Await Lumbar puncture Continue IV Rocephin (4) Hypertension: Plan: Add Cozaar low dose if BP trends up. For now BP okay. (5) Hyperlipidemia: Plan: Good HDL (6) Failure of outpatient treatment: Plan: Therefore IV antibiotic (7) Confusion and disorientation: Plan: This symptom is improving. (8) Intractable nausea and vomiting: Plan: Improved. Admission and Anticipated Discharge Date Admission Date: October 31, 2022 Subjective 57 yo male reports feeling stronger today. Able to walk short distances and able to move extremities. Review of Systems Review of Systems: All systems reviewed & are unremarkable except as noted in HPI & below Physical Exam Physical Exam: The patient is awake, alert and oriented 3, well developed and well nourished, normocephalic and atraumatic, lying in bed and in no acute distress. HEENT--PERRL, EOMI, mucous membranes and oropharynx dry. Neck--supple. No JVD. No bruits. Thyroid normal, trachea midline, no adenopathy. Heart--normal S1 and S2. No murmurs, rubs or gallops. Lungs--clear bilaterally, no respiratory distress, no accessory muscle use. Abdomen--normal bowel sounds and soft. Nontender. Nondistended, no hernias or masses, no organomegaly. Extremities--no cyanosis or clubbing. No edema. There are good distal pulses b/l. improved strength. Dermatologic--normal skin turgor, normal color, no abnormal lymph nodes, no rash. Neurologic--cranial nerves II through XII grossly intact. Psychiatric--normal affect. Constitutional: WD/WN, vitals as above Eyes: PERRL, conjunctivae normal, anicteric sclerae ENMT: external ear and nose normal, oropharynx normal Cardiovascular: RRR, no murmur, no edema Results & Data Results & Data Vital Signs (Past 12 Hours) Vital Signs Temp Pulse Resp BP Pulse Ox O2 Del Method 11/03/22 15:40 36.6 C 60 16 132/77 94 Room Air PG Care Time/CCT Total # of Minutes Spent Total Time Spent with Patient: Total time spent is greater than 50% in coordination of care (as documented) at patient's floor/unit and/or counseling patient: Coding Level of Care Code 64821 SUB INP/OBS CARE 2/35MIN Diagnoses Vertigo R42 Weakness R53.1 Acute pansinusitis J01.40 Hypertension I10 Hyperlipidemia E78.5 Failure of outpatient treatment Z78.9 Confusion and disorientation R41.0 Intractable nausea and vomiting R11.2
[2022-11-03] MEDS ORDERED: SODIUM PHOSPHATE 3 MMOL/1 ML INFUSION IV STA (23:02)
[2022-11-03] MEDS ORDERED: SODIUM PHOSPHATE 24 MMOL in SODIUM CHLORIDE 0.9% 500 ML IV ONE (23:30)
[2022-11-04 07:03] LABS: Hematocrit (blood only) 43.1 % (42.0-52.0); Hemoglobin 15.1 g/dl (14.0-18.0); Mean Corpuscular Hemoglobin 32.5 pg (25.0-34.0); Mean Corpuscular Volume 92.9 fL (80.0-100.0); Mean Platelet Volume 10.6 fL (9.4-12.4); Platelet Count 276 K/uL (130-400); RDW Coefficient of Variation 13.1 % (11.5-14.5); RDW Standard Deviation 44.6 fL (36.4-46.3); Red Blood Count 4.64 M/uL (4.70-6.10); White Blood Count 12.48 K/ul (4.8-10.8)
[2022-11-04 07:29] LABS: BUN Creatinine Ratio 22.4 (10-20); Calcium 8.7 mg/dl (8.6-10.3); Est GFR (African American) 98.8 ml/min; Est GFR (Non-African American) 85.2 ml/min; Phosphorus 4.3 mg/dl (2.5-4.9); Potassium 4.3 mmol/L (3.5-5.1)
[2022-11-04] MEDS: MECLIZINE 12.5 MG TAB PO PRN ×3 (07:51→21:30)
[2022-11-04] MEDS: methylPREDNISolone 40 MG in SYRINGE 0 ML IV SCH (07:58)
[2022-11-04] MEDS: amLODIPine BESYLATE 5 MG TAB PO SCH (07:58)
[2022-11-04] MEDS: LOSARTAN POTASSIUM 25 MG TAB PO SCH ×2 (07:58→20:44)
[2022-11-04] MEDS: ATORVASTATIN 10 MG TAB PO SCH (09:04)
[2022-11-04] MEDS: cefTRIAXone SODIUM 2,000 MG in DEXTROSE 5% 50 ML IV SCH (15:29)
--- NOTE | 2022-11-04 22:37 | Hospitalist Progress Note ---
Date of Service November 04, 2022 Assessment & Plan (1) Vertigo: Plan: Patient admitted with vertigo and weakness. Unsure as to the cause. Patient has had etensive workup, including LP, MRI of head with and without contrast. Unsure of cause of his symptoms. A variant of Guillian [place] syndrome is a possibility. Ordered GQ1b. ordered inflammatory markers. will check ach antibodies. doubt mysthenia gravis or eaton lambert syndrom Patient continues to have vertigo. appreciate input from Neuro. Patient continues to show mild improvement on 11/04, but is waxing and waning. will continue to monitor. (2) Weakness: Plan: unsure of his cause, could be GBS. (3) Acute pansinusitis: Plan: Acute pansinusitis/failure of outpatient treatment/confusion and disorientation/intractable vertigo- Started on Unasyn 3 g IV in the ED, and continue Unasyn 3 g IV every 6 hours Add methylprednisolone 125 mg IV now, and then 40 mg IV every 8 hours Patient showing signs of systemic involvement with intractable nausea vomiting, no oral intake for 2 days, dehydration, and disorientation and confusion He failed Augmentin twice daily for 3 days, which will be stopped Continue symptomatic treatment with meclizine 12.5 mg p.o. 3 times daily as needed dizziness Hypertension- Continue amlodipine with hold parameters Add Cozaar 25 mg BID Hyperlipidemia- Continue atorvastatin solumedrol has bbeen lowered to daily consulted neuro, LP completed. Continue IV Rocephin (4) Hypertension: Plan: Add Cozaar low dose if BP trends up. For now BP okay. (5) Hyperlipidemia: Plan: Good HDL (6) Failure of outpatient treatment: Plan: Therefore IV antibiotic (7) Confusion and disorientation: Plan: This symptom is improving. (8) Intractable nausea and vomiting: Plan: Improved. Admission and Anticipated Discharge Date Admission Date: October 31, 2022 Subjective 57 yo male reports feeling exhausted, he did walk around the halls today with the walker but is now extremely tired. Review of Systems Review of Systems: All systems reviewed & are unremarkable except as noted in HPI & below Physical Exam Physical Exam: The patient is awake, alert and oriented 3, well developed and well nourished, normocephalic and atraumatic, lying in bed and in no acute distress. HEENT--PERRL, EOMI, mucous membranes and oropharynx dry. Neck--supple. No JVD. No bruits. Thyroid normal, trachea midline, no adenopathy. Heart--normal S1 and S2. No murmurs, rubs or gallops. Lungs--clear bilaterally, no respiratory distress, no accessory muscle use. Abdomen--normal bowel sounds and soft. Nontender. Nondistended, no hernias or masses, no organomegaly. Extremities--no cyanosis or clubbing. No edema. There are good distal pulses b/l. improved strength. Dermatologic--normal skin turgor, normal color, no abnormal lymph nodes, no rash. Neurologic--cranial nerves II through XII grossly intact. Psychiatric--normal affect. Results & Data Results & Data Vital Signs (Past 12 Hours) Vital Signs Temp Pulse Resp BP BP Pulse Ox O2 Del Method 11/04/22 22:12 36.5 C 74 16 160/109 H 157/104 H 96 Room Air 11/04/22 15:37 36.4 C L 79 18 159/92 H 94 Room Air PG Care Time/CCT Total # of Minutes Spent Total Time Spent with Patient: Total time spent is greater than 50% in coordination of care (as documented) at patient's floor/unit and/or counseling patient: Coding Level of Care Code 18222 SUB INP/OBS CARE 2/35MIN Diagnoses Vertigo R42 Weakness R53.1 Acute pansinusitis J01.40 Hypertension I10 Hyperlipidemia E78.5 Failure of outpatient treatment Z78.9 Confusion and disorientation R41.0 Intractable nausea and vomiting R11.2
[2022-11-05] MEDS: MECLIZINE 12.5 MG TAB PO PRN ×3 (08:17→21:36)
[2022-11-05] MEDS: amLODIPine BESYLATE 5 MG TAB PO SCH (08:18)
[2022-11-05] MEDS: LOSARTAN POTASSIUM 25 MG TAB PO SCH ×2 (08:18→21:37)
[2022-11-05] MEDS: ATORVASTATIN 10 MG TAB PO SCH (08:18)
[2022-11-05] MEDS: methylPREDNISolone 40 MG in SYRINGE 0 ML IV SCH (08:46)
[2022-11-05 14:32] LABS: Marijuana Quant, GCMS Urine 512 ng/mL (<5)
[2022-11-05] MEDS: cefTRIAXone SODIUM 2,000 MG in DEXTROSE 5% 50 ML IV SCH (16:00)
--- NOTE | 2022-11-05 22:35 | Hospitalist Progress Note ---
Date of Service November 05, 2022 Assessment & Plan (1) Vertigo: Plan: Patient admitted with vertigo and weakness. Unsure as to the cause. Patient has had etensive workup, including LP, MRI of head with and without contrast. Unsure of cause of his symptoms. A variant of Guillian [place] syndrome is a possibility. Ordered GQ1b. ordered inflammatory markers: were negative will check ach antibodies. doubt mysthenia gravis or eaton lambert syndrom Patient continues to have vertigo. appreciate input from Neuro: will have Dr. Young see patient on 11/06 as this does not appear to be psychogenic due to the acute onset. He may need EMG/nerve conduction study. Patient continues to show mild improvement on 11/05, but is waxing and waning. will continue to monitor. (2) Weakness: Plan: unsure of his cause, could be GBS. (3) Acute pansinusitis: Plan: Acute pansinusitis/failure of outpatient treatment/confusion and disorientation/intractable vertigo- Started on Unasyn 3 g IV in the ED, and continue Unasyn 3 g IV every 6 hours Add methylprednisolone 125 mg IV now, and then 40 mg IV every 8 hours Patient showing signs of systemic involvement with intractable nausea vomiting, no oral intake for 2 days, dehydration, and disorientation and confusion He failed Augmentin twice daily for 3 days, which will be stopped Continue symptomatic treatment with meclizine 12.5 mg p.o. 3 times daily as needed dizziness Hypertension- Continue amlodipine with hold parameters Add Cozaar 25 mg BID Hyperlipidemia- Continue atorvastatin solumedrol has bbeen lowered to daily consulted neuro, LP completed. Continue IV Rocephin (4) Hypertension: Plan: Add Cozaar low dose if BP trends up. For now BP okay. (5) Hyperlipidemia: Plan: Good HDL (6) Failure of outpatient treatment: Plan: Therefore IV antibiotic (7) Confusion and disorientation: Plan: This symptom is improving. (8) Intractable nausea and vomiting: Plan: Improved. Admission and Anticipated Discharge Date Admission Date: October 31, 2022 Subjective Patient reports having more energy today. He is not back to his normal self but he feels like whatever was ailing him is leaving. Review of Systems Review of Systems: All systems reviewed & are unremarkable except as noted in HPI & below Physical Exam Physical Exam: Patient is sitting in bed. Appears more lively. Gait: needs walker to ambulate, able to lift feet off ground, but requires alot of effort. Strength in all extremities is 4+/5 Heart: RRR, lung: not using accessory muscles to breath Results & Data Results & Data Vital Signs (Past 12 Hours) Vital Signs Temp Pulse Resp BP BP Pulse Ox O2 Del Method 11/05/22 21:34 37.1 C 79 16 156/83 H 96 Room Air 11/05/22 16:12 36.5 C 76 16 146/84 H 95 Room Air PG Care Time/CCT Total # of Minutes Spent Total Time Spent with Patient: Total time spent is greater than 50% in coordination of care (as documented) at patient's floor/unit and/or counseling patient: Coding Level of Care Code 49682 SUB INP/OBS CARE 2/35MIN Diagnoses Vertigo R42 Weakness R53.1 Acute pansinusitis J01.40 Hypertension I10 Hyperlipidemia E78.5 Failure of outpatient treatment Z78.9 Confusion and disorientation R41.0 Intractable nausea and vomiting R11.2
--- NOTE | 2022-11-06 09:19 | Neurology Progress Note ---
Date of Service November 06, 2022 Assessment & Plan (1) Weakness: (2) Vertigo: (3) Ataxia: (4) Confusion and disorientation: Plan this patient had an acute onset of ataxia, weakness in general, and vertigo with some confusion /disorientation. Initially was thought to have a pansinu sitis but imaging did not reveal significant sinus disease. Out lumbar puncture had a mildly elevated protein with no increase in white cells. Had acute viral process is possible. A toxin exposure is possible as well. 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 Fortunately, he is improving to the point where he likely could go. Recommendations: 1. Awaiting GQ1b antibody titer 2. hold on IVIG or other treatment for now. 3. Continue physical and occupational therapy 4. consider EMG nerve conduction studies as an outpatient. 5. I have no further recommendations to make otherwise but would be happy to follow as an outpatient. Overall, spent a total of 50 minutes with this case including review of records, review of MRI films, direct evaluation the patient bedside, reports generation, and discussion of the case with the patient at bedside as well as Dr. Solares including differential diagnosis and treatment options. Admission and Anticipated Discharge Date Admission Date: October 31, 2022 Subjective patient tells me that he was quite fit and active being in martial arts ( kickboxing and other grappling) from ages 20 -35, and then being quite active in martial arts since. He has had multiple injuries to the head and neck but has never had a loss of consciousness. 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 He does not spray any organophosphates , or any insecticides or herbicides. He noted sinusitis symptoms with fever going to [facility] October 27 after 2 days of this. They gave him Augmentin and Antivert because he had dizziness. This increased and he was admitted October 29 2 [facility]. On admission, he was noted to have confusion and disorientation with pansinusitis, vertigo and trouble walking. Neurology was consulted and an LP was recommended. MRI of the brain showed no significant sinusitis or other abnormalities. There was no acute stroke. serum White count initially was elevated at 11.6 but his sed rate was 20. Chem profile was unremarkable although his glucose was although some and he had a low phosphorus. AST and ALT were mildly elevated and CK was 128. LP was performed and he had 2 white cells and a protein of 74. there has been no growth so far. He was put on ceftriaxone and given methylprednisolone. Although he still feels a little "foggy" he is not as confused. He has no headache or neck symptoms currently. His generalized weakness is improved although he still feels weak in general legs greater than arms. He gets vertiginous symptoms particularly with turning his head. Meclizine does help some. Results & Data Vital Signs (Past 12 Hours) Vital Signs Temp Pulse Resp BP Pulse Ox O2 Del Method 11/06/22 07:28 36.6 C 64 16 110/74 96 Room Air 11/05/22 21:34 37.1 C 79 16 156/83 H 96 Room Air Exam (Neuro) Physical Exam: He is awake and alert. Speech is without aphasia or dysarthria. Mood is reasonable affect is appropriate. Thought processes are slow but fairly accurate. He tends to state that he "needs time to think as he is slow". Extraocular eye muscles are intact without nystagmus. Pupils are 4 millimeters bilaterally reactive to light. There is no facial droop and there is no weakness of the face bilaterally. Tongue is midline and palate is normal. Neck is supple. There is no tenderness to the cervical, thoracic, or lumbar spine. Gait is wide-based/ataxic. He can go from sitting to standing just using his legs. Turns are slow and cautious. Stance with feet together and eyes open is somewhat unstable and remains that way with eyes closed. Coordination is normal in the arms although there may be some slight ataxia of the left upper extremity. There is good [id number] testing otherwise. There is good facility in the hands bilaterally. Strength is actually close to 5/5 diffusely in all major muscle groups in the arms and legs proximally and d istally. He does tend to tire easily. Hip flexors and quads may be closer to 4+/5 bilaterally. Distally, he is clearly 5/5 in all 4 limbs. Reflexes are 1/for the biceps, triceps, brachioradialis, and quadriceps tendons bilaterally. The right Achilles is 1/for the left is absent. Toes are downgoing to plantar stimulation bilaterally. Sensory examination seems intact in all 4 limbs. PG Care Time/CCT Total # of Minutes Spent Total Time Spent with Patient: Total time spent is greater than 50% in coordination of care (as documented) at patient's floor/unit and/or counseling patient: Coding Level of Care Code 69877 SUB INP/OBS CARE 3/50MIN Diagnoses Weakness R53.1 Vertigo R42 Ataxia R27.0 Confusion and disorientation R41.0
[2022-11-06] MEDS: MECLIZINE 12.5 MG TAB PO PRN ×2 (09:22→15:00)
[2022-11-06] MEDS: ATORVASTATIN 10 MG TAB PO SCH (09:22)
[2022-11-06] MEDS: LOSARTAN POTASSIUM 25 MG TAB PO SCH (09:23)
[2022-11-06] MEDS: amLODIPine BESYLATE 5 MG TAB PO SCH (09:23)
[2022-11-06] MEDS: methylPREDNISolone 40 MG in SYRINGE 0 ML IV SCH (09:23)
[2022-11-06] MEDS: cefTRIAXone SODIUM 2,000 MG in DEXTROSE 5% 50 ML IV SCH (14:17)
--- NOTE | 2022-11-14 14:02 | Discharge Summary ---
Date of Service November 06, 2022 Admission HPI Per Admitting Provider The patient is a 57-year-old male with a past medical history including hypertension and hyperlipidemia. He presents to the emergency department with 3 days of progressively worsening symptoms as noted above. He was started on Augmentin twice daily 3 days ago, and symptoms have continued to intensify since that time. He reports not having been able to hold anything down for 2 days. 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 Appears more lively. Gait: needs walker to ambulate, able to lift feet off ground, and has wide based gait. Strength in all extremities is 4+/5 Heart: RRR, lung: not using accessory muscles to breath Constitutional WD/WN, vitals as above Eyes PERRL, conjunctivae normal, anicteric sclerae ENMT external ear and nose normal, oropharynx normal Cardiovascular RRR, no murmur, no edema Discharge Data Allergies Allergy/AdvReac Type Severity Reaction Status Date / Time apple Allergy Severe APPLE Verified 10/29/22 19:21 SKINS--MOUTH & THROAT SWELL grass pollen Allergy Severe HIVES, Verified 10/29/22 19:21 CONGESTION, SNEEZING, ITCHY EYES pollen extracts Allergy Severe HIVES, Verified 10/29/22 19:21 CONGESTION, SNEEZING, ITCHY EYES Consultations 10/29/22 23:28 ED Decision to Admit Stat 10/30/22 11:53 Consult Neurology Routine Ordered Studies 10/29/22 18:36 CT Brain [CT head/brain wo con] Stat CT sinus wo con Stat 10/31/22 02:34 MRI brain [MR brain IAC wo/w con] Urgent 11/01/22 18:53 IR lumbar puncture diagnostic Urgent Hospital Course (1) Vertigo: Patient admitted with vertigo and weakness. 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 Patient has had extensive workup, including LP, MRI of head with and without contrast. Ordered GQ1b. ordered inflammatory markers: were negative will check ach antibodies. doubt mysthenia gravis or eaton lambert syndrom Patient continues to have vertigo which could be a vairant of GBS appreciate input from Neuro: this patient had an acute onset of ataxia, weakness in general, and vertigo with some confusion /disorientation. Initially was thought to have a pansinusitis but imaging did not reveal significant sinus disease. Out lumbar puncture had a mildly elevated protein with no increase in white cells. Had acute viral process is possible. A toxin exposure is possible as well. 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 Fortunately, he is improving to the point where he likely could go. Recommendations: 1. Awaiting GQ1b antibody titer 2. hold on IVIG or other treatment for now. 3. Continue physical and occupational therapy 4. consider EMG nerve conduction studies as an outpatient. (2) Weakness: unsure of his cause, could be GBS. (3) Acute pansinusitis: Acute pansinusitis/failure of outpatient treatment/confusion and disorientation/intractable vertigo- Started on Unasyn 3 g IV in the ED, and continue Unasyn 3 g IV every 6 hours Add methylprednisolone 125 mg IV now, and then 40 mg IV every 8 hours Patient showing signs of systemic involvement with intractable nausea vomiting, no oral intake for 2 days, dehydration, and disorientation and confusion He failed Augmentin twice daily for 3 days, which will be stopped Continue symptomatic treatment with meclizine 12.5 mg p.o. 3 times daily as needed dizziness Hypertension- Continue amlodipine with hold parameters Add Cozaar 25 mg BID Hyperlipidemia- Continue atorvastatin solumedrol has bbeen lowered to daily consulted neuro, LP completed. treated with IV Rocephin (4) Hypertension: Add Cozaar low dose if BP trends up. For now BP okay. (5) Hyperlipidemia: Good HDL (6) Failure of outpatient treatment: Therefore IV antibiotic may beenfit from ENT (7) Confusion and disorientation: This symptom is improving. (8) Intractable nausea and vomiting: Improved. Total Time Total Time Spent Total Time Spent (In Minutes): 32 Discharge Plan Discharge Items Patient Disposition: Home - Home Health Services Reason For Visit: SINUSITIS,VERTIGO,DISORIENTATION, Discharge Diagnosis: vertigo, sinusitis Activity: Resume your previous activity Non-emergency contact: Primary Care Provider Call non-emergency contact if: you have any medication questions Follow-up/Referrals: Richard Driver MD [Primary Care Provider] - Diet: Regular Addtl Attending Provider Instructions: Guillain-Arzate syndrome (GBS) is a rare but serious condition that affects the nerves in the body. It usually starts with weakness and tingling in the legs and can spread to the arms and upper body. In more severe cases, it can lead to difficulty moving or even paralysis. GBS happens when the body's immune system mistakenly attacks the nerves. The exact cause is unknown, but it often occurs after a viral or bacterial infection. Fortunately, most people with GBS recover with time and appropriate medical care. There are multiple variants and some can cause dizziness. We will recommend a followup with your PCP in 1-2 weeks. Will recommend a folllowup with Dr. Young Neurology in 1-2 weeks. Will recommend a followup with an ENT doctor. Please do not operate heavy machinery until cleared by Dr. Young or your PCP. Pending Studies at Discharge: No Stand-Alone Forms: [facility] [employer]!, Smoking Cessation Medications and DC Order Prescriptions: New losartan 25 mg Tablet 25 mg PO HS Qty: 30 0RF prednisone 5 mg tablet See Rx Instructions .ROUTE .COMPLEX Qty: 36 0RF Rx Instructions: prednisone 5 mg: take 8 tablets (40 mg) on Day 1; 7 tablets (35 mg) on Day 2; then decrease by 1 tablet every day until finished Continued atorvastatin 10 mg tablet 10 mg PO QAM amlodipine 5 mg tablet 5 mg PO HS Changed meclizine 12.5 mg tablet 12.5 mg PO Q12H PRN (Reason: Dizziness) Qty: 7 0RF Discontinued amoxicillin-pot clavulanate 875-125 mg tablet 1 tab PO BID Rx Instructions: STARTED 10/28/22 FOR 7 DAYS Discharge Orders: Discharge Order (Routine); Ordered 11/06/22 Ordered By: Cory Solares Admission Data Admit Date/Time: 10/31/22 16:05 Attending Provider: Cory Solares Admit Provider: Chan Abraham Primary Care Provider: Richard Driver Other Providers: Valeriy Love ; [facility] ; Nikolas Hooks Other Interventions: Discharge Summary Assessment (RN) Last Done: 11/06/22 18:13 Coding Level of Care Code 87563 INP/OBS DISCH >30 MIN Diagnoses Vertigo R42 Weakness R53.1 Acute pansinusitis J01.40 Hypertension I10 Hyperlipidemia E78.5 Failure of outpatient treatment Z78.9 Confusion and disorientation R41.0 Intractable nausea and vomiting R11.2
== END 2022-11-06 18:38 | disposition home health service (06) | DRG 96 ==
LOC: 3W 17:43 → ED 17:43 → SUATTDRO 10-30 00:32 → 3W 10-30 01:29 → SUATTDRO 10-31 16:05